=== PATIENT | male | born 1940 | race African-American/Black ===

== ENCOUNTER 2017-05-15 22:25 | Inpatient (IN) | payer MEDICARE, MEDICAID ==
[~2017-05-15] VITALS: Ht 188 cm; Wt 78.5 kg
[~2017-05-15 22:25] MED LIST: ALBU18HF2 IH; ALBUTEROL; AMLO10TA80 PO; IPRA42SP2 BOTHNSTRLS; LISI-604 PO; P20 PO; THEO200T17 PO
[2017-05-15] MEDS ORDERED: ALBUTEROL (0.083%) 2.5MG/3ML NEB HHN STA (23:28)
[2017-05-15] MEDS ORDERED: IPRATROPIUM BROMIDE (0.02%) 0.5MG/2.5ML NEB HHN STA (23:28)
[2017-05-15] MEDS ORDERED: METHYLPREDNISOLONE SOD SUCC 125 MG/2 ML VIAL IV STA (23:28)
[2017-05-15 23:47] LABS: BASOPHILS % 0.2 % (0.0-2.0); EOSINOPHILS % 0.1 % (0.0-5.0); HEMATOCRIT. 38.5 % (42.0-52.0); HEMOGLOBIN. 12.8 g/dL (14.0-18.0); MEAN CORPUSCULAR HEMOGLOBIN 25.9 pg (28.0-32.0); MEAN CORPUSCULAR VOLUME 77.6 fL (80.0-94.0); MEAN PLATELET VOLUME 8.1 fl (7.4-10.4); MONOCYTES % 9.2 % (2.0-8.0); NEUTROPHILS % 80.5 % (40.0-76.0); PLATELET 157 x1000/uL (130-400); RED BLOOD CELL COUNT 4.96 mill/uL (4.7-6.1); RED CELL DISTRIBUTION WIDTH 16.3 % (11.6-14.6)
[2017-05-16 00:04] LABS: CARBON DIOXIDE 29 mEq/L (21-32); CHLORIDE 107 mEq/L (98-107); TROPONIN I < 0.02 ng/mL (0.00-0.04)
[2017-05-16 00:09] LABS: BG BASE EXCESS 0.7 mmol/L (-2.0-2.0); BG CARBOXYHEMOGLOBIN 0.8 % (0.5-1.5); BG DEOXYHEMOGLOBIN 4.7 % (0.0-5.0); BG FRACTION INSPIRED OXYGEN 28; BG HCO3 ACT 26.3 mmol/L (22.0-26.0); BG METHEMOGLOBIN 0.2 % (0.0-1.5); BG OXYGEN SATURATION 95.3 % (92.0-98.5); BG OXYHEMOGLOBIN 94.3 % (94.0-97.0); BG PCO2 45.7 mmHg (35.0-45.0); BG PH 7.378 (7.350-7.450); BG PO2 79.5 mmHg (75.0-100.0); BG SAMPLE SITE RIGHT RADIAL; BG TOTAL HEMOGLOBIN 13.8 g/dL (12.0-18.0); BG VENT MODE NASAL CANNULA
[2017-05-16] MEDS ORDERED: GABA-290 PO ×2 (04:52→04:53)
[2017-05-16 06:00] VITALS: BP 113/70
[2017-05-16] MEDS ORDERED: IPRATROPIUM BROMIDE BOTHNSTRLS PRN (06:00)
[2017-05-16] MEDS ORDERED: ALBUTEROL 6.7GM HFA INHALER ORI PRN (06:00)
[2017-05-16] MEDS ORDERED: DICLOFENAC BOTHEYE (06:10)
[2017-05-16] MEDS ORDERED: ACETAMINOPHEN 325MG TABLET PO PRN (06:15)
[2017-05-16] MEDS ORDERED: IPRATROPIUM/ALBUTEROL 0.5-3(2.5)MG/3ML NEB HHN PRN (06:15)
[2017-05-16 06:18] VITALS: BP 119/70
[2017-05-16] MEDS: METHYLPREDNISOLONE SOD SUCC 40 MG/ML VIAL IV SCH ×3 (06:54→22:08)
[2017-05-16] MEDS ORDERED: CYCL30DR OP (07:31)
[2017-05-16 07:47] VITALS: BP 135/86
[2017-05-16] MEDS ORDERED: MEDICATION NOT ON FORMULARY EA (Gabapentin 600 MG) PO SCH (09:00)
[2017-05-16] MEDS: LISINOPRIL 20MG TABLET PO SCH (09:25)
[2017-05-16] MEDS: AMLODIPINE 10MG TABLET PO SCH (09:25)
[2017-05-16] MEDS: GABAPENTIN 300MG CAPSULE PO SCH ×2 (09:25→17:44)
[2017-05-16] MEDS: IPRATROPIUM/ALBUTEROL 0.5-3(2.5)MG/3ML NEB HHN SCH ×4 (11:07→22:15)
[2017-05-16 12:00] VITALS: BP 116/71
[2017-05-16 16:00] VITALS: BP 131/72
[2017-05-16] MEDS: DICLOFENAC 0.1% EACHEYE SCH (17:44)
[2017-05-16] MEDS: CYCLOSPORINE EACHEYE SCH (17:44)
[2017-05-16] MEDS: OPTH EACHEYE SCH (17:44)
[2017-05-16] MEDS: THEOPHYLLINE ANHYDROUS 80 MG/15 ML 120ML PO SCH (17:52)
[2017-05-16 20:00] VITALS: BP 127/71
[2017-05-17] VITALS: BP 117/75
[2017-05-17] MEDS: IPRATROPIUM/ALBUTEROL 0.5-3(2.5)MG/3ML NEB HHN SCH ×13 (00:12→19:55)
[2017-05-17] MEDS: THEOPHYLLINE ANHYDROUS 80 MG/15 ML 120ML PO SCH ×4 (00:30→18:45)
[2017-05-17 04:00] VITALS: BP 107/65
[2017-05-17] MEDS: METHYLPREDNISOLONE SOD SUCC 40 MG/ML VIAL IV SCH ×3 (06:00→21:01)
[2017-05-17 08:00] VITALS: BP 112/72
[2017-05-17] MEDS: GABAPENTIN 300MG CAPSULE PO SCH ×2 (09:13→17:49)
[2017-05-17] MEDS: DICLOFENAC 0.1% EACHEYE SCH ×2 (09:14→17:49)
[2017-05-17] MEDS: AMLODIPINE 10MG TABLET PO SCH (09:14)
[2017-05-17] MEDS: LISINOPRIL 20MG TABLET PO SCH (09:14)
[2017-05-17] MEDS: OPTH EACHEYE SCH ×2 (09:14→17:49)
[2017-05-17] MEDS: CYCLOSPORINE EACHEYE SCH ×2 (09:14→17:49)
[2017-05-17] MEDS ORDERED: IPRATROPIUM/ALBUTEROL 0.5-3(2.5)MG/3ML NEB HHN PRN (11:00)
[2017-05-17 11:55] LABS: HEMATOCRIT. 39.7 % (42.0-52.0); HEMOGLOBIN. 13.2 g/dL (14.0-18.0); MEAN CORPUSCULAR HEMOGLOBIN 25.9 pg (28.0-32.0); MEAN CORPUSCULAR VOLUME 77.9 fL (80.0-94.0); MEAN PLATELET VOLUME 8.2 fl (7.4-10.4); PLATELET 184 x1000/uL (130-400); RED BLOOD CELL COUNT 5.09 mill/uL (4.7-6.1); RED CELL DISTRIBUTION WIDTH 16.6 % (11.6-14.6)
[2017-05-17 12:00] VITALS: BP 100/63
[2017-05-17 12:11] LABS: CARBON DIOXIDE 32 mEq/L (21-32); CHLORIDE 102 mEq/L (98-107); PHOSPHORUS 2.7 mg/dL (2.5-4.9); THEOPHYLLINE 6.7 ug/mL (10-20); TROPONIN I < 0.02 ng/mL (0.00-0.04)
[2017-05-17] MEDS: GUAIFENESIN 600MG ER TABLET PO SCH ×2 (12:48→20:20)
[2017-05-17 16:00] VITALS: BP 109/54
[2017-05-17 16:19] LABS: PLATELET ESTIMATE NORMAL
[2017-05-17] MEDS ORDERED: GUAIFENESIN 600MG ER TABLET PO SCH (17:00)
[2017-05-17 20:00] VITALS: BP 102/66
[2017-05-18] VITALS: BP 108/66
[2017-05-18] MEDS: IPRATROPIUM/ALBUTEROL 0.5-3(2.5)MG/3ML NEB HHN SCH ×6 (00:23→21:14)
[2017-05-18] MEDS: THEOPHYLLINE ANHYDROUS 80 MG/15 ML 120ML PO SCH ×5 (00:27→23:56)
[2017-05-18] MEDS: DOCUSATE SODIUM 250MG CAPSULE PO SCH ×2 (00:45→08:32)
[2017-05-18] MEDS: CEFTRIAXONE 1 G PREMIX 50 ML IV SCH (01:40)
[2017-05-18 04:00] VITALS: BP 112/72
[2017-05-18] MEDS: METHYLPREDNISOLONE SOD SUCC 40 MG/ML VIAL IV SCH ×3 (05:12→22:03)
[2017-05-18 07:41] VITALS: BP 107/73
[2017-05-18] MEDS: OPTH EACHEYE SCH ×2 (08:30→17:06)
[2017-05-18] MEDS: DICLOFENAC 0.1% EACHEYE SCH ×2 (08:30→17:06)
[2017-05-18] MEDS: CYCLOSPORINE EACHEYE SCH ×2 (08:30→17:06)
[2017-05-18] MEDS: GABAPENTIN 300MG CAPSULE PO SCH ×2 (08:32→18:18)
[2017-05-18] MEDS: GUAIFENESIN 600MG ER TABLET PO SCH ×2 (08:32→22:01)
[2017-05-18] MEDS: AMLODIPINE 10MG TABLET PO SCH (08:33)
[2017-05-18] MEDS: LISINOPRIL 20MG TABLET PO SCH (08:33)
[2017-05-18] MEDS: ENOXAPARIN 40MG/0.4ML SYR SUBCUT SCH (08:34)
[2017-05-18 12:00] VITALS: BP 120/73
[2017-05-18 16:01] VITALS: BP 105/76
[2017-05-18 20:08] VITALS: BP 130/80
[2017-05-19 00:03] VITALS: BP 121/80
[2017-05-19] MEDS: IPRATROPIUM/ALBUTEROL 0.5-3(2.5)MG/3ML NEB HHN SCH ×6 (00:41→20:12)
[2017-05-19] MEDS: CEFTRIAXONE 1 G PREMIX 50 ML IV SCH (01:54)
[2017-05-19 04:00] VITALS: BP 123/80
[2017-05-19] MEDS: THEOPHYLLINE ANHYDROUS 80 MG/15 ML 120ML PO SCH ×3 (05:27→17:14)
[2017-05-19] MEDS: METHYLPREDNISOLONE SOD SUCC 40 MG/ML VIAL IV SCH ×3 (05:27→21:55)
[2017-05-19 06:59] LABS: BASOPHILS % 0.1 % (0.0-2.0); HEMATOCRIT. 43.7 % (42.0-52.0); HEMOGLOBIN. 14.3 g/dL (14.0-18.0); LYMPHOCYTES % 9.6 % (20.0-50.0); MEAN CORPUSCULAR HEMOGLOBIN 25.7 pg (28.0-32.0); MEAN CORPUSCULAR VOLUME 78.4 fL (80.0-94.0); MONOCYTES % 9.1 % (2.0-8.0); NEUTROPHILS % 81.2 % (40.0-76.0); PLATELET 204 x1000/uL (130-400); RED BLOOD CELL COUNT 5.57 mill/uL (4.7-6.1); RED CELL DISTRIBUTION WIDTH 16.3 % (11.6-14.6)
[2017-05-19 08:00] VITALS: BP 135/81
[2017-05-19] MEDS: DICLOFENAC 0.1% EACHEYE SCH ×2 (09:00→17:00)
[2017-05-19] MEDS: CYCLOSPORINE EACHEYE SCH ×2 (09:00→17:00)
[2017-05-19] MEDS: OPTH EACHEYE SCH ×2 (09:00→17:00)
[2017-05-19 09:07] LABS: CARBON DIOXIDE 31 mEq/L (21-32); CHLORIDE 98 mEq/L (98-107); THEOPHYLLINE 12.2 ug/mL (10-20)
[2017-05-19] MEDS: DOCUSATE SODIUM 250MG CAPSULE PO SCH (10:07)
[2017-05-19] MEDS: LISINOPRIL 20MG TABLET PO SCH (10:08)
[2017-05-19] MEDS: GABAPENTIN 300MG CAPSULE PO SCH ×2 (10:08→17:14)
[2017-05-19] MEDS: GUAIFENESIN 600MG ER TABLET PO SCH ×2 (10:08→21:55)
[2017-05-19] MEDS: AMLODIPINE 10MG TABLET PO SCH (10:08)
[2017-05-19] MEDS: ENOXAPARIN 40MG/0.4ML SYR SUBCUT SCH (10:09)
[2017-05-19 17:00] VITALS: BP 114/66
[2017-05-19 20:00] VITALS: BP 110/67
[2017-05-20] VITALS: BP 115/63
[2017-05-20] MEDS: IPRATROPIUM/ALBUTEROL 0.5-3(2.5)MG/3ML NEB HHN SCH ×7 (00:33→20:49)
[2017-05-20] MEDS: CEFTRIAXONE 1 G PREMIX 50 ML IV SCH (01:24)
[2017-05-20 04:00] VITALS: BP 108/74
[2017-05-20 06:50] LABS: BASOPHILS % 0.1 % (0.0-2.0); HEMATOCRIT. 43.5 % (42.0-52.0); HEMOGLOBIN. 14.4 g/dL (14.0-18.0); LYMPHOCYTES % 8.9 % (20.0-50.0); MEAN CORPUSCULAR HEMOGLOBIN 25.9 pg (28.0-32.0); MEAN CORPUSCULAR VOLUME 78.3 fL (80.0-94.0); MEAN PLATELET VOLUME 8.1 fl (7.4-10.4); MONOCYTES % 9.6 % (2.0-8.0); NEUTROPHILS % 81.4 % (40.0-76.0); PLATELET 218 x1000/uL (130-400); RED BLOOD CELL COUNT 5.55 mill/uL (4.7-6.1); RED CELL DISTRIBUTION WIDTH 16.2 % (11.6-14.6)
[2017-05-20] MEDS: THEOPHYLLINE ANHYDROUS 80 MG/15 ML 120ML PO SCH ×5 (06:54→23:56)
[2017-05-20] MEDS: METHYLPREDNISOLONE SOD SUCC 40 MG/ML VIAL IV SCH ×3 (06:54→22:57)
[2017-05-20 08:00] VITALS: BP 110/70
[2017-05-20 08:04] LABS: CARBON DIOXIDE 32 mEq/L (21-32); CHLORIDE 98 mEq/L (98-107)
[2017-05-20] MEDS: AMLODIPINE 10MG TABLET PO SCH (08:46)
[2017-05-20] MEDS: DOCUSATE SODIUM 250MG CAPSULE PO SCH (08:46)
[2017-05-20] MEDS: ENOXAPARIN 40MG/0.4ML SYR SUBCUT SCH (08:46)
[2017-05-20] MEDS: LISINOPRIL 20MG TABLET PO SCH (08:46)
[2017-05-20] MEDS: GABAPENTIN 300MG CAPSULE PO SCH ×2 (08:46→17:08)
[2017-05-20] MEDS: GUAIFENESIN 600MG ER TABLET PO SCH ×2 (08:46→20:23)
[2017-05-20] MEDS: DICLOFENAC 0.1% EACHEYE SCH ×2 (08:48→17:00)
[2017-05-20] MEDS: CYCLOSPORINE EACHEYE SCH ×2 (08:48→17:00)
[2017-05-20] MEDS: OPTH EACHEYE SCH ×2 (08:48→17:00)
[2017-05-20 12:16] VITALS: BP 99/69
[2017-05-20 16:00] VITALS: BP 115/66
[2017-05-20 20:00] VITALS: BP 109/73
[2017-05-21] VITALS: BP 105/71
[2017-05-21] MEDS: IPRATROPIUM/ALBUTEROL 0.5-3(2.5)MG/3ML NEB HHN SCH ×6 (00:51→19:45)
[2017-05-21] MEDS: CEFTRIAXONE 1 G PREMIX 50 ML IV SCH (01:54)
[2017-05-21 04:00] VITALS: BP 114/74
[2017-05-21] MEDS: THEOPHYLLINE ANHYDROUS 80 MG/15 ML 120ML PO SCH ×3 (06:07→20:24)
[2017-05-21] MEDS: METHYLPREDNISOLONE SOD SUCC 40 MG/ML VIAL IV SCH ×2 (06:22→13:18)
[2017-05-21 07:49] VITALS: BP 111/72
[2017-05-21] MEDS: DICLOFENAC 0.1% EACHEYE SCH ×2 (09:00→17:00)
[2017-05-21] MEDS: AMLODIPINE 10MG TABLET PO SCH (09:00)
[2017-05-21] MEDS: OPTH EACHEYE SCH ×2 (09:00→17:00)
[2017-05-21] MEDS: CYCLOSPORINE EACHEYE SCH ×2 (09:00→17:00)
[2017-05-21] MEDS: GABAPENTIN 300MG CAPSULE PO SCH ×2 (09:40→17:21)
[2017-05-21] MEDS: DOCUSATE SODIUM 250MG CAPSULE PO SCH (09:40)
[2017-05-21] MEDS: LISINOPRIL 20MG TABLET PO SCH (09:40)
[2017-05-21] MEDS: GUAIFENESIN 600MG ER TABLET PO SCH ×2 (09:41→20:24)
[2017-05-21] MEDS: ENOXAPARIN 40MG/0.4ML SYR SUBCUT SCH (09:42)
[2017-05-21 11:55] VITALS: BP 103/60
[2017-05-21 16:10] VITALS: BP 93/57
[2017-05-21 20:00] VITALS: BP 119/56
[2017-05-22] VITALS: BP 106/61
[2017-05-22] MEDS: CEFTRIAXONE 1 G PREMIX 50 ML IV SCH (01:06)
[2017-05-22 04:00] VITALS: BP 104/69
[2017-05-22] MEDS: IPRATROPIUM/ALBUTEROL 0.5-3(2.5)MG/3ML NEB HHN SCH ×6 (04:05→20:37)
[2017-05-22] MEDS ORDERED: METHYLPREDNISOLONE SOD SUCC 40 MG/ML VIAL IV SCH (06:15)
[2017-05-22 07:43] VITALS: BP 125/60
[2017-05-22] MEDS: DOCUSATE SODIUM 250MG CAPSULE PO SCH (08:59)
[2017-05-22] MEDS: GABAPENTIN 300MG CAPSULE PO SCH ×2 (08:59→16:19)
[2017-05-22] MEDS: AMLODIPINE 10MG TABLET PO SCH (08:59)
[2017-05-22] MEDS: GUAIFENESIN 600MG ER TABLET PO SCH ×2 (08:59→21:30)
[2017-05-22] MEDS: OPTH EACHEYE SCH ×2 (09:00→16:14)
[2017-05-22] MEDS: DICLOFENAC 0.1% EACHEYE SCH ×2 (09:00→16:14)
[2017-05-22] MEDS: CYCLOSPORINE EACHEYE SCH ×2 (09:00→16:14)
[2017-05-22] MEDS: LISINOPRIL 20MG TABLET PO SCH (09:00)
[2017-05-22] MEDS: ENOXAPARIN 40MG/0.4ML SYR SUBCUT SCH (09:01)
[2017-05-22 12:00] VITALS: BP 95/60
[2017-05-22 16:00] VITALS: BP 100/61
[2017-05-22 20:17] VITALS: BP 97/64
[2017-05-22] MEDS: THEOPHYLLINE ANHYDROUS 80 MG/15 ML 120ML PO SCH (21:30)
[2017-05-23] VITALS (12 sets, daily range): BP systolic 72–112; BP diastolic 43–78
[2017-05-23] MEDS: IPRATROPIUM/ALBUTEROL 0.5-3(2.5)MG/3ML NEB HHN SCH ×5 (00:04→17:28)
[2017-05-23] MEDS: CEFTRIAXONE 1 G PREMIX 50 ML IV SCH (02:07)
[2017-05-23 07:19] LABS: BASOPHILS % 0.1 % (0.0-2.0); HEMATOCRIT. 43.4 % (42.0-52.0); HEMOGLOBIN. 14.5 g/dL (14.0-18.0); LYMPHOCYTES % 29.1 % (20.0-50.0); MEAN CORPUSCULAR HEMOGLOBIN 26.2 pg (28.0-32.0); MEAN CORPUSCULAR VOLUME 78.6 fL (80.0-94.0); MEAN PLATELET VOLUME 7.9 fl (7.4-10.4); MONOCYTES % 10.9 % (2.0-8.0); NEUTROPHILS % 58.9 % (40.0-76.0); PLATELET 229 x1000/uL (130-400); RED BLOOD CELL COUNT 5.52 mill/uL (4.7-6.1); RED CELL DISTRIBUTION WIDTH 16.1 % (11.6-14.6)
[2017-05-23 08:21] LABS: CARBON DIOXIDE 32 mEq/L (21-32); CHLORIDE 98 mEq/L (98-107)
[2017-05-23] MEDS: CYCLOSPORINE EACHEYE SCH ×2 (09:00→17:00)
[2017-05-23] MEDS: AMLODIPINE 10MG TABLET PO SCH (09:00)
[2017-05-23] MEDS: DOCUSATE SODIUM 250MG CAPSULE PO SCH (09:00)
[2017-05-23] MEDS: GUAIFENESIN 600MG ER TABLET PO SCH ×2 (09:01→21:52)
[2017-05-23] MEDS: GABAPENTIN 300MG CAPSULE PO SCH ×2 (09:01→17:26)
[2017-05-23] MEDS: OPTH EACHEYE SCH ×2 (09:02→17:26)
[2017-05-23] MEDS: LISINOPRIL 20MG TABLET PO SCH (09:02)
[2017-05-23] MEDS: DICLOFENAC 0.1% EACHEYE SCH ×2 (09:02→17:26)
[2017-05-23] MEDS: ENOXAPARIN 40MG/0.4ML SYR SUBCUT SCH (09:04)
[2017-05-23] MEDS ORDERED: SODIUM CHLORIDE 0.9% 500 ML IV NR (16:15)
[2017-05-23] MEDS ORDERED: SODIUM CHLORIDE 0.9% 500 ML IV SCH (17:00)
[2017-05-23] MEDS ORDERED: SODIUM CHLORIDE 0.9% 500 ML IV ONE (19:45)
[2017-05-23] MEDS: OMEPRAZOLE 20MG CAPSULE EXTENDED RELEASE PO SCH (21:52)
[2017-05-23] MEDS: THEOPHYLLINE ANHYDROUS 80 MG/15 ML 120ML PO SCH (21:53)
[2017-05-24] MEDS: IPRATROPIUM/ALBUTEROL 0.5-3(2.5)MG/3ML NEB HHN SCH ×6 (00:18→19:53)
[2017-05-24] MEDS: CEFTRIAXONE 1 G PREMIX 50 ML IV SCH (01:22)
[2017-05-24 04:00] VITALS: BP 100/59
[2017-05-24] MEDS: OMEPRAZOLE 20MG CAPSULE EXTENDED RELEASE PO SCH (06:37)
[2017-05-24 07:45] LABS: CLARITY URINE CLEAR (CLEAR); COLOR URINE YELLOW (YELLOW); GLUCOSE URINE NEGATIVE (NEGATIVE); KETONES URINE NEGATIVE (NEGATIVE); LEUKOCYTE ESTERASE URINE NEGATIVE (NEGATIVE); NITRITE URINE NEGATIVE (NEGATIVE); OCCULT BLOOD URINE NEGATIVE (NEGATIVE); PH URINE 6.5 (4.5-8.0); PROTEIN URINE NEGATIVE (NEGATIVE); SPECIFIC GRAVITY URINE 1.012 (1.005-1.030); UROBILINOGEN URINE 0.2 E.U./dL (0.2-1.0)
[2017-05-24 07:52] LABS: BASOPHILS % 0.3 % (0.0-2.0); EOSINOPHILS % 1.3 % (0.0-5.0); HEMATOCRIT. 43.4 % (42.0-52.0); HEMOGLOBIN. 14.3 g/dL (14.0-18.0); MEAN CORPUSCULAR HEMOGLOBIN 25.9 pg (28.0-32.0); MEAN CORPUSCULAR VOLUME 78.6 fL (80.0-94.0); MEAN PLATELET VOLUME 7.8 fl (7.4-10.4); MONOCYTES % 12.8 % (2.0-8.0); NEUTROPHILS % 59.6 % (40.0-76.0); PLATELET 202 x1000/uL (130-400); RED BLOOD CELL COUNT 5.52 mill/uL (4.7-6.1); RED CELL DISTRIBUTION WIDTH 16.4 % (11.6-14.6)
[2017-05-24 08:00] VITALS: BP 91/64
[2017-05-24 08:25] LABS: CARBON DIOXIDE 35 mEq/L (21-32); CHLORIDE 100 mEq/L (98-107)
[2017-05-24] MEDS: OPTH EACHEYE SCH ×2 (08:48→16:13)
[2017-05-24] MEDS: DICLOFENAC 0.1% EACHEYE SCH ×2 (08:48→16:13)
[2017-05-24] MEDS: LISINOPRIL 20MG TABLET PO SCH (08:49)
[2017-05-24] MEDS: CYCLOSPORINE EACHEYE SCH ×2 (08:49→16:13)
[2017-05-24] MEDS: AMLODIPINE 10MG TABLET PO SCH (08:49)
[2017-05-24] MEDS: ENOXAPARIN 40MG/0.4ML SYR SUBCUT SCH (08:50)
[2017-05-24] MEDS: DOCUSATE SODIUM 250MG CAPSULE PO SCH (08:51)
[2017-05-24] MEDS: GABAPENTIN 300MG CAPSULE PO SCH ×2 (08:51→16:16)
[2017-05-24] MEDS: GUAIFENESIN 600MG ER TABLET PO SCH ×2 (08:51→20:29)
[2017-05-24] MEDS: DEXT 5%/0.9% NACL 1,000 ML IV SCH ×2 (10:16→18:55)
[2017-05-24 12:00] VITALS: BP 94/60
[2017-05-24 16:00] VITALS: BP 92/55
[2017-05-24 19:35] VITALS: BP 89/59
[2017-05-24] MEDS: THEOPHYLLINE ANHYDROUS 80 MG/15 ML 120ML PO SCH (20:29)
[2017-05-25 00:23] VITALS: BP 106/68
[2017-05-25] MEDS: IPRATROPIUM/ALBUTEROL 0.5-3(2.5)MG/3ML NEB HHN SCH ×6 (01:03→19:57)
[2017-05-25] MEDS: CEFTRIAXONE 1 G PREMIX 50 ML IV SCH (01:32)
[2017-05-25 04:46] VITALS: BP 105/72
[2017-05-25] MEDS: OMEPRAZOLE 20MG CAPSULE EXTENDED RELEASE PO SCH (06:14)
[2017-05-25 08:00] VITALS: BP 110/69
[2017-05-25] MEDS: AMLODIPINE 10MG TABLET PO SCH (09:00)
[2017-05-25] MEDS: CYCLOSPORINE EACHEYE SCH ×2 (09:00→17:00)
[2017-05-25] MEDS: LISINOPRIL 20MG TABLET PO SCH (09:00)
[2017-05-25] MEDS: GUAIFENESIN 600MG ER TABLET PO SCH ×2 (09:03→20:36)
[2017-05-25] MEDS: DOCUSATE SODIUM 250MG CAPSULE PO SCH (09:03)
[2017-05-25] MEDS: GABAPENTIN 300MG CAPSULE PO SCH ×2 (09:03→17:25)
[2017-05-25] MEDS: ENOXAPARIN 40MG/0.4ML SYR SUBCUT SCH (09:03)
[2017-05-25] MEDS: DICLOFENAC 0.1% EACHEYE SCH ×2 (09:04→17:25)
[2017-05-25] MEDS: OPTH EACHEYE SCH ×2 (09:04→17:25)
[2017-05-25 12:00] VITALS: BP 107/63
[2017-05-25 16:00] VITALS: BP 103/58
[2017-05-25 20:00] VITALS: BP 96/64
[2017-05-25] MEDS: THEOPHYLLINE ANHYDROUS 80 MG/15 ML 120ML PO SCH (20:37)
[2017-05-26] VITALS: BP 105/70
[2017-05-26] MEDS: IPRATROPIUM/ALBUTEROL 0.5-3(2.5)MG/3ML NEB HHN SCH ×4 (00:10→12:00)
[2017-05-26 04:00] VITALS: BP 114/66
[2017-05-26 06:11] LABS: CARBON DIOXIDE 33 mEq/L (21-32); CHLORIDE 97 mEq/L (98-107); THEOPHYLLINE 4.9 ug/mL (10-20)
[2017-05-26 06:15] LABS: BASOPHILS % 0.2 % (0.0-2.0); EOSINOPHILS % 0.7 % (0.0-5.0); HEMATOCRIT. 41.6 % (42.0-52.0); HEMOGLOBIN. 13.8 g/dL (14.0-18.0); LYMPHOCYTES % 24.7 % (20.0-50.0); MEAN CORPUSCULAR VOLUME 78.8 fL (80.0-94.0); MONOCYTES % 12.1 % (2.0-8.0); NEUTROPHILS % 62.3 % (40.0-76.0); PLATELET 190 x1000/uL (130-400); RED BLOOD CELL COUNT 5.28 mill/uL (4.7-6.1); RED CELL DISTRIBUTION WIDTH 15.9 % (11.6-14.6)
[2017-05-26] MEDS: OMEPRAZOLE 20MG CAPSULE EXTENDED RELEASE PO SCH (06:16)
[2017-05-26 07:51] VITALS: BP 111/71
[2017-05-26] MEDS: ENOXAPARIN 40MG/0.4ML SYR SUBCUT SCH (08:48)
[2017-05-26] MEDS: DICLOFENAC 0.1% EACHEYE SCH (08:48)
[2017-05-26] MEDS: OPTH EACHEYE SCH (08:48)
[2017-05-26] MEDS: GABAPENTIN 300MG CAPSULE PO SCH (08:48)
[2017-05-26] MEDS: DOCUSATE SODIUM 250MG CAPSULE PO SCH (08:48)
[2017-05-26] MEDS: CYCLOSPORINE EACHEYE SCH (08:49)
[2017-05-26] MEDS: GUAIFENESIN 600MG ER TABLET PO SCH (08:49)
[2017-05-26 10:53] VITALS: BP 111/71
== END 2017-05-26 14:50 | disposition home or self-care (01) | DRG 189 ==
LOC: ER 22:25 → 8WST 05-16 → EDBEDREQTM 05-16 00:07 → EDBEDREQ 05-16 00:07 → CANRESERV 05-16 01:22 → ENRESERVDT 05-16 01:22 → ENRESERVTM 05-16 01:22 → ENRESERV 05-16 04:09
PROVIDERS: ADMIT Internal Medicine; ATTEND Internal Medicine
DX: J96.20 Acute and chronic respiratory failure, unspecified whether with hypoxia or hypercapnia (principal); J18.9 Pneumonia, unspecified organism; I47.2 Ventricular tachycardia; I95.9 Hypotension, unspecified; D72.829 Elevated white blood cell count, unspecified; J44.0 Chronic obstructive pulmonary disease with (acute) lower respiratory infection; J44.1 Chronic obstructive pulmonary disease with (acute) exacerbation; I10 Essential (primary) hypertension; R26.9 Unspecified abnormalities of gait and mobility; R61 Generalized hyperhidrosis; Z82.49 Family history of ischemic heart disease and other diseases of the circulatory system; Z79.899 Other long term (current) drug therapy; Z88.8 Allergy status to other drugs, medicaments and biological substances; Z87.891 Personal history of nicotine dependence; J20.8 Acute bronchitis due to other specified organisms
CPT/HCPCS: 36415; 36600; 71010; 71020; 80048; 80198; 81003; 82375; 82805; 83605; 83735; 84100; 84132; 84484; 85025; 85651; 87040; 87070; 93005; 93306; 94640; 94644; 96374; 97110; 97116; 97162; 97166; 97530; 99285; J0696; J1650; J2920; J2930; J7040; J7042; J7050; J7611; J7620

== ENCOUNTER 2017-12-14 10:22 | Inpatient (IN) | payer MEDICARE, MEDICAID ==
[~2017-12-14] VITALS: Ht 180.3 cm; Wt 78.9 kg
[~2017-12-14 10:22] MED LIST changes: -ALBU18HF2 IH; +CYCL30DR OP; +DICLOFENAC BOTHEYE; +GABA-290 PO; -IPRA42SP2 BOTHNSTRLS
[2017-12-14 11:11] LABS: BASOPHILS % 0.1 % (0.0-2.0); EOSINOPHILS % 0.3 % (0.0-5.0); HEMATOCRIT. 37.8 % (42.0-52.0); HEMOGLOBIN. 12.4 g/dL (14.0-18.0); LYMPHOCYTES % 23.8 % (20.0-50.0); MEAN CORPUSCULAR HEMOGLOBIN 27.5 pg (28.0-32.0); MEAN CORPUSCULAR VOLUME 83.5 fL (80.0-94.0); MEAN PLATELET VOLUME 7.6 fl (7.4-10.4); MONOCYTES % 10.2 % (2.0-8.0); NEUTROPHILS % 65.6 % (40.0-76.0); PLATELET 165 x1000/uL (130-400); RED BLOOD CELL COUNT 4.52 mill/uL (4.7-6.1); RED CELL DISTRIBUTION WIDTH 15.1 % (11.6-14.6)
[2017-12-14 11:18] LABS: CHLORIDE 102 mEq/L (98-107); PROTHROMBIN TIME 10.7 sec (9.4-11.6)
[2017-12-14] MEDS ORDERED: METHYLPREDNISOLONE SOD SUCC 125 MG/2 ML VIAL IV STA (11:45)
[2017-12-14] MEDS ORDERED: ALBUTEROL (0.083%) 2.5MG/3ML NEB HHN STA (11:45)
[2017-12-14] MEDS ORDERED: ACETAMINOPHEN 325MG TABLET PO PRN (13:00)
[2017-12-14] MEDS ORDERED: HYDROCODONE/ACETAMINOPHEN 5/325MG TABLET PO PRN (13:00)
[2017-12-14] MEDS ORDERED: GUAIFENESIN 200MG/10ML SUGAR FREE UDC PO PRN (13:00)
[2017-12-14] MEDS ORDERED: CLONIDINE 0.1MG TABLET PO PRN (13:00)
[2017-12-14] MEDS ORDERED: ONDANSETRON HCL 4MG/2ML VIAL IV PRN (13:00)
[2017-12-14 15:53] LABS: CREATINE KINASE 47 IU/L (39-308); CREATINE KINASE MB FRACTION 1.9 ng/mL (0.5-3.6)
[2017-12-14] MEDS: IPRATROPIUM/ALBUTEROL 0.5-3(2.5)MG/3ML NEB INH PRN ×2 (16:09→22:52)
[2017-12-14 21:00] VITALS: BP 156/86
[2017-12-14 21:22] VITALS: BP 156/86
[2017-12-14] MEDS ORDERED: CEFTRIAXONE 1 G PREMIX 50 ML IV SCH (22:00)
[2017-12-14] MEDS ORDERED: AZITHROMYCIN 500 MG in DEXT 5% WATER 250 ML IV SCH (23:00)
[2017-12-15] VITALS: BP 141/70
[2017-12-15 00:06] LABS: CREATINE KINASE 47 IU/L (39-308)
[2017-12-15 00:07] LABS: CREATINE KINASE MB FRACTION 2.3 ng/mL (0.5-3.6)
[2017-12-15 04:00] VITALS: BP 121/81
[2017-12-15] MEDS: IPRATROPIUM/ALBUTEROL 0.5-3(2.5)MG/3ML NEB INH PRN (05:53)
[2017-12-15] MEDS: PANTOPRAZOLE 40MG DR TABLET PO SCH (05:53)
[2017-12-15 06:59] LABS: BASOPHILS % 0.1 % (0.0-2.0); HEMATOCRIT. 40.2 % (42.0-52.0); HEMOGLOBIN. 12.9 g/dL (14.0-18.0); LYMPHOCYTES % 7.8 % (20.0-50.0); MEAN CORPUSCULAR HEMOGLOBIN 26.8 pg (28.0-32.0); MEAN CORPUSCULAR VOLUME 83.4 fL (80.0-94.0); MEAN PLATELET VOLUME 8.5 fl (7.4-10.4); MONOCYTES % 5.1 % (2.0-8.0); PLATELET 189 x1000/uL (130-400); RED BLOOD CELL COUNT 4.81 mill/uL (4.7-6.1)
[2017-12-15 07:42] LABS: CHLORIDE 100 mEq/L (98-107)
[2017-12-15 07:54] LABS: LDL CHOLESTEROL 108 mg/dL (5-100)
[2017-12-15 08:00] VITALS: BP 122/67
[2017-12-15 08:44] LABS: HDL CHOLESTEROL 137 mg/dL (40-59)
[2017-12-15] MEDS: TAMSULOSIN HCL 0.4MG SR CAPSULE PO SCH (08:54)
[2017-12-15] MEDS: AMLODIPINE 10MG TABLET PO SCH (08:54)
[2017-12-15] MEDS: ASPIRIN 81MG EC TABLET PO SCH (08:54)
[2017-12-15] MEDS: ENOXAPARIN 40MG/0.4ML SYR SUBCUT SCH (08:55)
[2017-12-15] MEDS: DOCUSATE SODIUM 100MG CAPSULE PO PRN (08:56)
[2017-12-15 10:16] LABS: BG BASE EXCESS 4.1 mmol/L (-2.0-2.0); BG CARBOXYHEMOGLOBIN 0.9 % (0.5-1.5); BG DEOXYHEMOGLOBIN 5.8 % (0.0-5.0); BG FRACTION INSPIRED OXYGEN 28; BG HCO3 ACT 31.1 mmol/L (22.0-26.0); BG METHEMOGLOBIN 0.3 % (0.0-1.5); BG OXYGEN SATURATION 94.1 % (92.0-98.5); BG PCO2 56.4 mmHg (35.0-45.0); BG PH 7.359 (7.350-7.450); BG PO2 76.9 mmHg (75.0-100.0); BG SAMPLE SITE RIGHT RADIAL; BG TOTAL HEMOGLOBIN 13.9 g/dL (12.0-18.0); BG VENT MODE NASAL CANNULA
[2017-12-15] MEDS ORDERED: IPRATROPIUM/ALBUTEROL 0.5-3(2.5)MG/3ML NEB INH PRN (11:30)
[2017-12-15 12:00] VITALS: BP 130/73
[2017-12-15] MEDS ORDERED: SODIUM POLYSTYRENE SULFONATE 15 G/60 ML BOT PO SCH (12:00)
[2017-12-15] MEDS ORDERED: IPRATROPIUM/ALBUTEROL 0.5-3(2.5)MG/3ML NEB HHN SCH (12:00)
[2017-12-15] MEDS ORDERED: BUDESONIDE 0.5MG/2ML NEB HHN SCH (12:15)
[2017-12-15] MEDS ORDERED: METHYLPREDNISOLONE SOD SUCC 40 MG/ML VIAL IV SCH (12:15)
[2017-12-15] MEDS: METHYLPREDNISOLONE SOD SUCC 40 MG/ML VIAL IV SCH ×2 (12:32→23:38)
[2017-12-15] MEDS: IPRATROPIUM/ALBUTEROL 0.5-3(2.5)MG/3ML NEB HHN SCH ×2 (15:41→21:02)
[2017-12-15 16:00] VITALS: BP 123/64
[2017-12-15 20:00] VITALS: BP 116/67
[2017-12-15] MEDS: CEFTRIAXONE 1 G PREMIX 50 ML IV SCH (23:39)
[2017-12-16] VITALS: BP 107/65
[2017-12-16] MEDS: AZITHROMYCIN 500 MG in DEXT 5% WATER 250 ML IV SCH (00:13)
[2017-12-16] MEDS: IPRATROPIUM/ALBUTEROL 0.5-3(2.5)MG/3ML NEB HHN SCH ×4 (01:20→20:31)
[2017-12-16 04:00] VITALS: BP 124/72
[2017-12-16] MEDS: PANTOPRAZOLE 40MG DR TABLET PO SCH (05:54)
[2017-12-16 07:27] LABS: HEMOGLOBIN. 12.6 g/dL (14.0-18.0); MEAN CORPUSCULAR HEMOGLOBIN 26.8 pg (28.0-32.0); MEAN CORPUSCULAR VOLUME 83.3 fL (80.0-94.0); MEAN PLATELET VOLUME 8.8 fl (7.4-10.4); PLATELET 172 x1000/uL (130-400); RED BLOOD CELL COUNT 4.69 mill/uL (4.7-6.1); RED CELL DISTRIBUTION WIDTH 14.8 % (11.6-14.6)
[2017-12-16 07:56] LABS: CHLORIDE 101 mEq/L (98-107)
[2017-12-16 08:37] VITALS: BP 121/96
[2017-12-16] MEDS: ENOXAPARIN 40MG/0.4ML SYR SUBCUT SCH (08:39)
[2017-12-16] MEDS: TAMSULOSIN HCL 0.4MG SR CAPSULE PO SCH (08:39)
[2017-12-16] MEDS: AMLODIPINE 10MG TABLET PO SCH (08:39)
[2017-12-16] MEDS: ASPIRIN 81MG EC TABLET PO SCH (08:39)
[2017-12-16] MEDS: METHYLPREDNISOLONE SOD SUCC 40 MG/ML VIAL IV SCH ×2 (11:53→20:15)
[2017-12-16 11:58] VITALS: BP 116/68
[2017-12-16] MEDS ORDERED: IPRATROPIUM/ALBUTEROL 0.5-3(2.5)MG/3ML NEB HHN PRN (19:45)
[2017-12-16 20:00] VITALS: BP 120/74
[2017-12-16] MEDS: CEFTRIAXONE 1 G PREMIX 50 ML IV SCH (23:09)
[2017-12-17] VITALS: BP 97/64
[2017-12-17] MEDS: METHYLPREDNISOLONE SOD SUCC 40 MG/ML VIAL IV SCH ×5 (00:09→22:58)
[2017-12-17] MEDS: AZITHROMYCIN 500 MG in DEXT 5% WATER 250 ML IV SCH (00:09)
[2017-12-17] MEDS: IPRATROPIUM/ALBUTEROL 0.5-3(2.5)MG/3ML NEB HHN SCH ×6 (00:47→20:47)
[2017-12-17 04:00] VITALS: BP 127/74
[2017-12-17 05:13] LABS: PLATELET ESTIMATE NORMAL
[2017-12-17] MEDS: PANTOPRAZOLE 40MG DR TABLET PO SCH (05:58)
[2017-12-17 07:14] LABS: HEMATOCRIT. 39.3 % (42.0-52.0); HEMOGLOBIN. 12.6 g/dL (14.0-18.0); MEAN CORPUSCULAR HEMOGLOBIN 26.7 pg (28.0-32.0); MEAN CORPUSCULAR VOLUME 83.2 fL (80.0-94.0); MEAN PLATELET VOLUME 8.4 fl (7.4-10.4); PLATELET 173 x1000/uL (130-400); RED BLOOD CELL COUNT 4.72 mill/uL (4.7-6.1); RED CELL DISTRIBUTION WIDTH 14.9 % (11.6-14.6)
[2017-12-17 08:00] LABS: CHLORIDE 101 mEq/L (98-107)
[2017-12-17 08:19] LABS: PHOSPHORUS 2.8 mg/dL (2.5-4.9)
[2017-12-17 08:27] VITALS: BP 119/70
[2017-12-17] MEDS: TAMSULOSIN HCL 0.4MG SR CAPSULE PO SCH (08:28)
[2017-12-17] MEDS: ASPIRIN 81MG EC TABLET PO SCH (08:28)
[2017-12-17] MEDS: AMLODIPINE 10MG TABLET PO SCH (08:28)
[2017-12-17] MEDS: ENOXAPARIN 40MG/0.4ML SYR SUBCUT SCH (08:28)
[2017-12-17] MEDS: DOCUSATE SODIUM 100MG CAPSULE PO PRN (08:34)
[2017-12-17 16:00] VITALS: BP 120/87
[2017-12-17 20:00] VITALS: BP 127/77
[2017-12-17] MEDS: CEFTRIAXONE 1 G PREMIX 50 ML IV SCH (22:58)
[2017-12-18] VITALS: BP 120/79
[2017-12-18] MEDS: IPRATROPIUM/ALBUTEROL 0.5-3(2.5)MG/3ML NEB HHN SCH ×5 (00:30→21:58)
[2017-12-18] MEDS: AZITHROMYCIN 500 MG in DEXT 5% WATER 250 ML IV SCH (00:35)
[2017-12-18 04:00] VITALS: BP 137/83
[2017-12-18] MEDS: METHYLPREDNISOLONE SOD SUCC 40 MG/ML VIAL IV SCH ×4 (05:50→23:55)
[2017-12-18] MEDS: PANTOPRAZOLE 40MG DR TABLET PO SCH (05:50)
[2017-12-18 08:00] VITALS: BP 131/78
[2017-12-18] MEDS: AMLODIPINE 10MG TABLET PO SCH (08:59)
[2017-12-18] MEDS: TAMSULOSIN HCL 0.4MG SR CAPSULE PO SCH (09:00)
[2017-12-18] MEDS: ASPIRIN 81MG EC TABLET PO SCH (09:00)
[2017-12-18] MEDS: ENOXAPARIN 40MG/0.4ML SYR SUBCUT SCH (09:00)
[2017-12-18] MEDS: DOCUSATE SODIUM 100MG CAPSULE PO PRN (10:00)
[2017-12-18 12:00] VITALS: BP 132/73
[2017-12-18 15:18] LABS: PLATELET ESTIMATE NORMAL
[2017-12-18 16:00] VITALS: BP 127/84
[2017-12-18 20:00] VITALS: BP 121/69
[2017-12-18] MEDS: ARFORMOTEROL TARTRATE 15MCG/2ML NEB NEB SCH (21:58)
[2017-12-18] MEDS: CEFTRIAXONE 1 G PREMIX 50 ML IV SCH (23:56)
[2017-12-19] VITALS: BP 154/72
[2017-12-19] MEDS: IPRATROPIUM/ALBUTEROL 0.5-3(2.5)MG/3ML NEB HHN SCH ×6 (00:50→20:25)
[2017-12-19] MEDS: AZITHROMYCIN 500 MG in DEXT 5% WATER 250 ML IV SCH ×2 (00:55→23:58)
[2017-12-19 04:00] VITALS: BP 128/59
[2017-12-19 05:45] LABS: HEMATOCRIT. 37.8 % (42.0-52.0); HEMOGLOBIN. 12.2 g/dL (14.0-18.0); MEAN CORPUSCULAR HEMOGLOBIN 26.7 pg (28.0-32.0); MEAN PLATELET VOLUME 8.5 fl (7.4-10.4); PLATELET 174 x1000/uL (130-400); RED BLOOD CELL COUNT 4.56 mill/uL (4.7-6.1); RED CELL DISTRIBUTION WIDTH 14.8 % (11.6-14.6)
[2017-12-19 06:41] LABS: CHLORIDE 103 mEq/L (98-107)
[2017-12-19 06:47] LABS: PHOSPHORUS 2.2 mg/dL (2.5-4.9)
[2017-12-19] MEDS: METHYLPREDNISOLONE SOD SUCC 40 MG/ML VIAL IV SCH ×4 (06:47→23:18)
[2017-12-19] MEDS: PANTOPRAZOLE 40MG DR TABLET PO SCH (06:47)
[2017-12-19 08:00] VITALS: BP 117/74
[2017-12-19] MEDS: ARFORMOTEROL TARTRATE 15MCG/2ML NEB NEB SCH ×2 (08:07→21:42)
[2017-12-19] MEDS: ASPIRIN 81MG EC TABLET PO SCH (09:18)
[2017-12-19] MEDS: AMLODIPINE 10MG TABLET PO SCH (09:18)
[2017-12-19] MEDS: TAMSULOSIN HCL 0.4MG SR CAPSULE PO SCH (09:18)
[2017-12-19] MEDS: ENOXAPARIN 40MG/0.4ML SYR SUBCUT SCH (09:25)
[2017-12-19] MEDS: DOCUSATE SODIUM 100MG CAPSULE PO PRN ×2 (09:25→21:34)
[2017-12-19 12:00] VITALS: BP 118/68
[2017-12-19 16:00] VITALS: BP 120/64
[2017-12-19 20:00] VITALS: BP 123/71
[2017-12-19] MEDS: CEFTRIAXONE 1 G PREMIX 50 ML IV SCH (23:19)
[2017-12-19] MEDS ORDERED: POTASSIUM PHOS,M-BASIC-D-BASIC 20 MMOL in DEXT 5% WATER 243.3333 ML IV NR (23:30)
[2017-12-19 23:38] LABS: PLATELET ESTIMATE NORMAL
[2017-12-20] VITALS: BP 132/80
[2017-12-20] MEDS: IPRATROPIUM/ALBUTEROL 0.5-3(2.5)MG/3ML NEB HHN SCH ×6 (00:12→20:48)
[2017-12-20 04:00] VITALS: BP 124/74
[2017-12-20] MEDS: PANTOPRAZOLE 40MG DR TABLET PO SCH (05:45)
[2017-12-20] MEDS: METHYLPREDNISOLONE SOD SUCC 40 MG/ML VIAL IV SCH ×2 (05:45→12:16)
[2017-12-20 05:54] LABS: HEMATOCRIT. 39.4 % (42.0-52.0); HEMOGLOBIN. 12.8 g/dL (14.0-18.0); MEAN CORPUSCULAR VOLUME 83.3 fL (80.0-94.0); MEAN PLATELET VOLUME 8.8 fl (7.4-10.4); PLATELET 165 x1000/uL (130-400); RED BLOOD CELL COUNT 4.73 mill/uL (4.7-6.1); RED CELL DISTRIBUTION WIDTH 14.8 % (11.6-14.6)
[2017-12-20 06:51] LABS: CHLORIDE 102 mEq/L (98-107)
[2017-12-20 07:01] LABS: PHOSPHORUS 3.3 mg/dL (2.5-4.9)
[2017-12-20 08:00] VITALS: BP 162/96
[2017-12-20] MEDS: TAMSULOSIN HCL 0.4MG SR CAPSULE PO SCH (08:50)
[2017-12-20] MEDS: ASPIRIN 81MG EC TABLET PO SCH (08:50)
[2017-12-20] MEDS: AMLODIPINE 10MG TABLET PO SCH (08:50)
[2017-12-20] MEDS: ENOXAPARIN 40MG/0.4ML SYR SUBCUT SCH (08:51)
[2017-12-20] MEDS: DOCUSATE SODIUM 100MG CAPSULE PO PRN (08:53)
[2017-12-20] MEDS: ARFORMOTEROL TARTRATE 15MCG/2ML NEB NEB SCH ×2 (09:18→20:49)
[2017-12-20 12:00] VITALS: BP 114/62
[2017-12-20 13:45] LABS: PLATELET ESTIMATE NORMAL
[2017-12-20 20:00] VITALS: BP 126/77
[2017-12-20] MEDS ORDERED: PREDNISONE 20MG TABLET PO SCH (21:00)
== END 2017-12-20 22:30 | DRG 190 ==
LOC: ER 10:49 → 5WST 12:23 → EDBEDREQ 12:29 → SUPCPDRO 12:54 → ENRESERV 19:16
PROVIDERS: ADMIT Hospitalist; ATTEND Hospitalist
DX: J44.0 Chronic obstructive pulmonary disease with (acute) lower respiratory infection (principal); J18.9 Pneumonia, unspecified organism; E87.5 Hyperkalemia; D64.9 Anemia, unspecified; B02.29 Other postherpetic nervous system involvement; J44.1 Chronic obstructive pulmonary disease with (acute) exacerbation; N40.0 Benign prostatic hyperplasia without lower urinary tract symptoms; K21.9 Gastro-esophageal reflux disease without esophagitis; Y95 Nosocomial condition; J20.9 Acute bronchitis, unspecified; I10 Essential (primary) hypertension; Z88.8 Allergy status to other drugs, medicaments and biological substances; Z87.891 Personal history of nicotine dependence; Z82.49 Family history of ischemic heart disease and other diseases of the circulatory system; Z79.899 Other long term (current) drug therapy; Z79.52 Long term (current) use of systemic steroids
CPT/HCPCS: 36415; 36600; 71045; 80048; 80053; 80061; 82375; 82550; 82553; 82805; 83735; 83880; 84100; 84484; 85025; 85610; 85651; 93005; 93970; 94618; 94640; 96374; 97116; 97162; 97166; 99285; J0456; J0696; J1650; J2920; J2930; J3490; J7040; J7060; J7611; J7620

== ENCOUNTER 2018-08-11 21:05 | Inpatient (IN) | payer MEDICARE, MEDICAID ==
[~2018-08-11] VITALS: Ht 182.9 cm; Wt 73.0 kg
[~2018-08-11 21:05] MED LIST changes: +ALBU18HF2 IH; -ALBUTEROL; -AMLO10TA80 PO; +CYCL30DR EACHEYE; -CYCL30DR OP; +DICL2.5D8 EACHEYE; -DICLOFENAC BOTHEYE; -GABA-290 PO; -LISI-604 PO; +OMEP40CA34 PO; +PVCXPC MT; +TRAV2.5D EACHEYE
[2018-08-11 21:30] VITALS: BP 105/72
[2018-08-11] MEDS: IPRATROPIUM/ALBUTEROL 0.5-3(2.5)MG/3ML NEB HHN SCH ×2 (21:54)
[2018-08-11] MEDS ORDERED: BUDESONIDE 0.5MG/2ML NEB ONE (21:56)
[2018-08-11] MEDS ORDERED: CLONIDINE 0.1MG TABLET PO PRN (22:15)
[2018-08-11] MEDS ORDERED: ACETAMINOPHEN 325MG TABLET PO PRN (22:15)
[2018-08-11] MEDS ORDERED: GUAIFENESIN 200MG/10ML SUGAR FREE UDC PO PRN (22:15)
[2018-08-12] MEDS: METHYLPREDNISOLONE SOD SUCC 40 MG/ML VIAL IV SCH ×4 (01:03→23:46)
[2018-08-12] MEDS: THEOPHYLLINE ANHYDROUS 80 MG/15 ML 120ML PO SCH ×2 (01:04→06:44)
[2018-08-12] MEDS: IPRATROPIUM/ALBUTEROL 0.5-3(2.5)MG/3ML NEB HHN SCH ×6 (01:39→22:04)
[2018-08-12 02:45] VITALS: BP 105/72
[2018-08-12 08:00] VITALS: BP 132/78
[2018-08-12 08:18] LABS: HEMATOCRIT. 38.4 % (42.0-52.0); HEMOGLOBIN. 12.5 g/dL (14.0-18.0); MEAN CORPUSCULAR VOLUME 79.6 fL (80.0-94.0); MEAN PLATELET VOLUME 8.6 fl (7.4-10.4); PLATELET 295 x1000/uL (130-400); RED BLOOD CELL COUNT 4.82 mill/uL (4.7-6.1); RED CELL DISTRIBUTION WIDTH 14.7 % (11.6-14.6)
[2018-08-12 09:01] LABS: CHLORIDE 98 mEq/L (98-107)
[2018-08-12 09:22] LABS: THEOPHYLLINE 7.2 ug/mL (10-20)
[2018-08-12] MEDS: AMLODIPINE 2.5MG TABLET PO SCH ×2 (09:34→20:40)
[2018-08-12] MEDS: AMOXICILLIN/POTASSIUM CLAVULANATE 875/125MG TAB PO SCH ×2 (09:34→17:29)
[2018-08-12] MEDS: LOSARTAN POTASSIUM 25 MG TABLET PO SCH (09:35)
[2018-08-12] MEDS: CARVEDILOL 3.125 MG TABLET PO SCH ×2 (09:35→21:00)
[2018-08-12] MEDS: ENOXAPARIN 40MG/0.4ML SYR SUBCUT SCH (09:35)
[2018-08-12] MEDS: FAMOTIDINE 20MG TABLET PO SCH ×2 (09:35→17:29)
[2018-08-12 20:00] VITALS: BP 103/71
[2018-08-12] MEDS: LATANOPROST 0.005% OPHTH DROPS 2.5ML BOTHEYE SCH (21:03)
[2018-08-13] MEDS: IPRATROPIUM/ALBUTEROL 0.5-3(2.5)MG/3ML NEB HHN SCH ×6 (01:59→20:54)
[2018-08-13 02:31] LABS: PLATELET ESTIMATE NORMAL
[2018-08-13] MEDS: METHYLPREDNISOLONE SOD SUCC 40 MG/ML VIAL IV SCH ×3 (06:20→21:13)
[2018-08-13 08:00] VITALS: BP 95/65
[2018-08-13 08:47] LABS: BASOPHILS % 0.1 % (0.0-2.0); HEMATOCRIT. 38.9 % (42.0-52.0); HEMOGLOBIN. 12.4 g/dL (14.0-18.0); LYMPHOCYTES % 7.9 % (20.0-50.0); MEAN CORPUSCULAR HEMOGLOBIN 25.4 pg (28.0-32.0); MEAN CORPUSCULAR VOLUME 79.5 fL (80.0-94.0); MEAN PLATELET VOLUME 8.7 fl (7.4-10.4); MONOCYTES % 2.6 % (2.0-8.0); NEUTROPHILS % 89.4 % (40.0-76.0); PLATELET 329 x1000/uL (130-400); RED BLOOD CELL COUNT 4.89 mill/uL (4.7-6.1); RED CELL DISTRIBUTION WIDTH 14.4 % (11.6-14.6)
[2018-08-13] MEDS: AMLODIPINE 2.5MG TABLET PO SCH ×2 (09:00→21:13)
[2018-08-13] MEDS: LOSARTAN POTASSIUM 25 MG TABLET PO SCH (09:00)
[2018-08-13] MEDS: CARVEDILOL 3.125 MG TABLET PO SCH ×2 (09:00→21:00)
[2018-08-13] MEDS: FAMOTIDINE 20MG TABLET PO SCH ×2 (09:34→17:28)
[2018-08-13] MEDS: AMOXICILLIN/POTASSIUM CLAVULANATE 875/125MG TAB PO SCH ×2 (09:34→17:28)
[2018-08-13] MEDS: ENOXAPARIN 40MG/0.4ML SYR SUBCUT SCH (09:34)
[2018-08-13 10:09] LABS: CHLORIDE 97 mEq/L (98-107)
[2018-08-13 10:16] LABS: PHOSPHORUS 3.3 mg/dL (2.5-4.9)
[2018-08-13 10:25] LABS: TOTAL IRON BINDING CAPACITY 215 ug/dL (250-450)
[2018-08-13 11:47] LABS: FOLIC ACID (FOLATE) SERUM 10.8 ng/mL (>5.38)
[2018-08-13 12:06] LABS: PROSTRATE SPECIFIC AG TOTAL 5.33 ng/mL (0.0-4.0)
[2018-08-13] MEDS ORDERED: SODIUM POLYSTYRENE SULFONATE 15 G/60 ML BOT PO NR (13:00)
[2018-08-13 20:00] VITALS: BP 113/73
[2018-08-13] MEDS: LATANOPROST 0.005% OPHTH DROPS 2.5ML BOTHEYE SCH (21:12)
[2018-08-14] MEDS: IPRATROPIUM/ALBUTEROL 0.5-3(2.5)MG/3ML NEB HHN SCH ×6 (00:28→21:03)
[2018-08-14] MEDS: METHYLPREDNISOLONE SOD SUCC 40 MG/ML VIAL IV SCH ×3 (06:15→21:53)
[2018-08-14 06:52] LABS: HEMOGLOBIN. 11.8 g/dL (14.0-18.0); MEAN CORPUSCULAR HEMOGLOBIN 25.3 pg (28.0-32.0); MEAN PLATELET VOLUME 8.8 fl (7.4-10.4); PLATELET 320 x1000/uL (130-400); RED BLOOD CELL COUNT 4.68 mill/uL (4.7-6.1); RED CELL DISTRIBUTION WIDTH 14.9 % (11.6-14.6)
[2018-08-14 07:50] LABS: CHLORIDE 96 mEq/L (98-107)
[2018-08-14 07:58] VITALS: BP 112/77
[2018-08-14] MEDS: ENOXAPARIN 40MG/0.4ML SYR SUBCUT SCH (08:09)
[2018-08-14] MEDS: CARVEDILOL 3.125 MG TABLET PO SCH ×2 (08:09→21:00)
[2018-08-14] MEDS: AMOXICILLIN/POTASSIUM CLAVULANATE 875/125MG TAB PO SCH ×2 (08:09→17:14)
[2018-08-14] MEDS: LOSARTAN POTASSIUM 25 MG TABLET PO SCH (08:10)
[2018-08-14] MEDS: FAMOTIDINE 20MG TABLET PO SCH ×2 (08:10→17:14)
[2018-08-14] MEDS: AMLODIPINE 2.5MG TABLET PO SCH ×2 (08:12→21:00)
[2018-08-14 13:51] LABS: BG BASE EXCESS 11.9 mmol/L (-2.0-2.0); BG CARBOXYHEMOGLOBIN 0.3 % (0.5-1.5); BG DEOXYHEMOGLOBIN 5.7 % (0.0-5.0); BG FRACTION INSPIRED OXYGEN 28; BG HCO3 ACT 39.7 mmol/L (22.0-26.0); BG METHEMOGLOBIN 0.1 % (0.0-1.5); BG OXYGEN SATURATION 94.3 % (92.0-98.5); BG OXYHEMOGLOBIN 93.9 % (94.0-97.0); BG PCO2 68.4 mmHg (35.0-45.0); BG PH 7.382 (7.350-7.450); BG PO2 73.3 mmHg (75.0-100.0); BG SAMPLE SITE LEFT RADIAL; BG TOTAL HEMOGLOBIN 12.7 g/dL (12.0-18.0); BG VENT MODE NASAL CANNULA
[2018-08-14 17:22] LABS: PLATELET ESTIMATE NORMAL
[2018-08-14 20:00] VITALS: BP 102/66
[2018-08-14] MEDS: LATANOPROST 0.005% OPHTH DROPS 2.5ML BOTHEYE SCH (21:53)
[2018-08-15] MEDS: IPRATROPIUM/ALBUTEROL 0.5-3(2.5)MG/3ML NEB HHN SCH ×7 (00:35→23:53)
[2018-08-15] MEDS: METHYLPREDNISOLONE SOD SUCC 40 MG/ML VIAL IV SCH ×3 (06:06→21:55)
[2018-08-15 06:47] LABS: HEMATOCRIT. 37.2 % (42.0-52.0); HEMOGLOBIN. 11.9 g/dL (14.0-18.0); LYMPHOCYTES % 7.4 % (20.0-50.0); MEAN CORPUSCULAR HEMOGLOBIN 25.2 pg (28.0-32.0); MEAN PLATELET VOLUME 8.7 fl (7.4-10.4); MONOCYTES % 4.2 % (2.0-8.0); NEUTROPHILS % 88.4 % (40.0-76.0); PLATELET 328 x1000/uL (130-400); RED CELL DISTRIBUTION WIDTH 14.6 % (11.6-14.6)
[2018-08-15 06:48] LABS: CHLORIDE 95 mEq/L (98-107)
[2018-08-15 08:00] VITALS: BP 105/78
[2018-08-15] MEDS ORDERED: MAGNESIUM HYDROXIDE 400MG/5ML 30ML UDC PO PRN (08:30)
[2018-08-15] MEDS: AMLODIPINE 2.5MG TABLET PO SCH ×2 (09:00→21:00)
[2018-08-15] MEDS: LOSARTAN POTASSIUM 25 MG TABLET PO SCH (09:00)
[2018-08-15] MEDS: CARVEDILOL 3.125 MG TABLET PO SCH ×2 (09:00→21:00)
[2018-08-15] MEDS ORDERED: MAGNESIUM HYDROXIDE 400MG/5ML 30ML UDC PO NR (09:15)
[2018-08-15] MEDS: AMOXICILLIN/POTASSIUM CLAVULANATE 875/125MG TAB PO SCH ×2 (09:25→17:10)
[2018-08-15] MEDS: ENOXAPARIN 40MG/0.4ML SYR SUBCUT SCH (09:25)
[2018-08-15] MEDS: FAMOTIDINE 20MG TABLET PO SCH ×2 (09:26→17:10)
[2018-08-15] MEDS: ACETAZOLAMIDE 250MG TABLET PO SCH ×3 (11:00→17:10)
[2018-08-15] MEDS: BISACODYL 5MG TABLET PO SCH (16:23)
[2018-08-15 20:00] VITALS: BP 103/71
[2018-08-15] MEDS: LATANOPROST 0.005% OPHTH DROPS 2.5ML BOTHEYE SCH (21:55)
[2018-08-16] MEDS: IPRATROPIUM/ALBUTEROL 0.5-3(2.5)MG/3ML NEB HHN SCH ×5 (04:08→20:39)
[2018-08-16] MEDS: METHYLPREDNISOLONE SOD SUCC 40 MG/ML VIAL IV SCH ×3 (06:21→23:12)
[2018-08-16 08:00] VITALS: BP 99/47
[2018-08-16] MEDS: BISACODYL 5MG TABLET PO SCH (08:42)
[2018-08-16] MEDS: FAMOTIDINE 20MG TABLET PO SCH ×2 (08:42→17:36)
[2018-08-16] MEDS: LOSARTAN POTASSIUM 25 MG TABLET PO SCH (08:42)
[2018-08-16] MEDS: CARVEDILOL 3.125 MG TABLET PO SCH ×2 (08:43→21:19)
[2018-08-16] MEDS: AMLODIPINE 2.5MG TABLET PO SCH (08:43)
[2018-08-16] MEDS: ENOXAPARIN 40MG/0.4ML SYR SUBCUT SCH (08:43)
[2018-08-16] MEDS: AMOXICILLIN/POTASSIUM CLAVULANATE 875/125MG TAB PO SCH ×2 (08:46→17:35)
[2018-08-16 09:05] LABS: CHLORIDE 99 mEq/L (98-107)
[2018-08-16] MEDS: DOCUSATE SODIUM 100MG CAPSULE PO SCH (17:36)
[2018-08-16 20:00] VITALS: BP 118/67
[2018-08-16] MEDS: POLYETHYLENE GLYCOL 3350 (17GM) 1 DOSE PACK PO SCH (21:19)
[2018-08-16] MEDS: LATANOPROST 0.005% OPHTH DROPS 2.5ML BOTHEYE SCH (21:19)
[2018-08-17] MEDS: IPRATROPIUM/ALBUTEROL 0.5-3(2.5)MG/3ML NEB HHN SCH ×6 (00:28→20:54)
[2018-08-17] MEDS: METHYLPREDNISOLONE SOD SUCC 40 MG/ML VIAL IV SCH ×2 (06:15→14:59)
[2018-08-17 07:03] LABS: BASOPHILS % 0.2 % (0.0-2.0); HEMATOCRIT. 39.6 % (42.0-52.0); HEMOGLOBIN. 12.8 g/dL (14.0-18.0); LYMPHOCYTES % 8.5 % (20.0-50.0); MEAN CORPUSCULAR HEMOGLOBIN 25.7 pg (28.0-32.0); MEAN CORPUSCULAR VOLUME 79.8 fL (80.0-94.0); MEAN PLATELET VOLUME 9.3 fl (7.4-10.4); MONOCYTES % 4.4 % (2.0-8.0); NEUTROPHILS % 86.9 % (40.0-76.0); PLATELET 323 x1000/uL (130-400); RED BLOOD CELL COUNT 4.97 mill/uL (4.7-6.1)
[2018-08-17 07:18] LABS: CHLORIDE 101 mEq/L (98-107)
[2018-08-17 08:00] VITALS: BP 123/74
[2018-08-17] MEDS ORDERED: NON FORMULARY PATIENT HOME MED XX SCH (09:00)
[2018-08-17] MEDS: FAMOTIDINE 20MG TABLET PO SCH ×2 (09:18→16:31)
[2018-08-17] MEDS: BISACODYL 5MG TABLET PO SCH (09:18)
[2018-08-17] MEDS: CARVEDILOL 3.125 MG TABLET PO SCH ×2 (09:18→21:00)
[2018-08-17] MEDS: ENOXAPARIN 40MG/0.4ML SYR SUBCUT SCH (09:18)
[2018-08-17] MEDS: AMOXICILLIN/POTASSIUM CLAVULANATE 875/125MG TAB PO SCH ×2 (09:18→16:31)
[2018-08-17] MEDS: LOSARTAN POTASSIUM 25 MG TABLET PO SCH (09:18)
[2018-08-17] MEDS: DOCUSATE SODIUM 100MG CAPSULE PO SCH ×2 (09:18→16:31)
[2018-08-17] MEDS: PREDNISONE 20MG TABLET PO SCH (10:23)
[2018-08-17] MEDS: RESTASIS 0.05% OP SCH ×2 (10:36→16:32)
[2018-08-17] MEDS: DICLOFENAC SODIUM 0.1% OPHTH 2.5 ML BOTTLE BOTHEYE SCH ×2 (10:37→21:19)
[2018-08-17] MEDS ORDERED: SODIUM POLYSTYRENE SULFONATE 15 G/60 ML BOT PO SCH (16:00)
[2018-08-17] MEDS: GUAIFENESIN 600MG ER TABLET PO SCH (16:31)
[2018-08-17 20:09] VITALS: BP 93/54
[2018-08-17] MEDS: POLYETHYLENE GLYCOL 3350 (17GM) 1 DOSE PACK PO SCH (21:00)
[2018-08-17] MEDS: LATANOPROST 0.005% OPHTH DROPS 2.5ML BOTHEYE SCH (21:20)
[2018-08-18] MEDS: IPRATROPIUM/ALBUTEROL 0.5-3(2.5)MG/3ML NEB HHN SCH ×5 (01:35→20:38)
[2018-08-18 07:28] LABS: BASOPHILS % 0.3 % (0.0-2.0); HEMATOCRIT. 38.6 % (42.0-52.0); HEMOGLOBIN. 12.5 g/dL (14.0-18.0); MEAN CORPUSCULAR HEMOGLOBIN 25.4 pg (28.0-32.0); MEAN CORPUSCULAR VOLUME 78.4 fL (80.0-94.0); MEAN PLATELET VOLUME 9.3 fl (7.4-10.4); MONOCYTES % 11.2 % (2.0-8.0); NEUTROPHILS % 72.5 % (40.0-76.0); PLATELET 314 x1000/uL (130-400); RED BLOOD CELL COUNT 4.92 mill/uL (4.7-6.1)
[2018-08-18 07:34] LABS: CHLORIDE 100 mEq/L (98-107)
[2018-08-18 08:00] VITALS: BP 95/54
[2018-08-18] MEDS: BISACODYL 5MG TABLET PO SCH (08:46)
[2018-08-18] MEDS: PREDNISONE 20MG TABLET PO SCH (08:46)
[2018-08-18] MEDS: FAMOTIDINE 20MG TABLET PO SCH ×2 (08:46→17:09)
[2018-08-18] MEDS: GUAIFENESIN 600MG ER TABLET PO SCH ×2 (08:46→20:56)
[2018-08-18] MEDS: AMOXICILLIN/POTASSIUM CLAVULANATE 875/125MG TAB PO SCH ×2 (08:46→17:09)
[2018-08-18] MEDS: DOCUSATE SODIUM 100MG CAPSULE PO SCH ×2 (08:46→17:09)
[2018-08-18] MEDS: ENOXAPARIN 40MG/0.4ML SYR SUBCUT SCH (08:47)
[2018-08-18] MEDS: RESTASIS 0.05% OP SCH ×2 (08:47→17:13)
[2018-08-18] MEDS: DICLOFENAC SODIUM 0.1% OPHTH 2.5 ML BOTTLE BOTHEYE SCH ×2 (08:47→20:54)
[2018-08-18] MEDS: CARVEDILOL 3.125 MG TABLET PO SCH ×2 (08:48→20:56)
[2018-08-18 14:22] LABS: 25-HYDROXY VITAMIN D3 24 ng/mL (.)
[2018-08-18 20:00] VITALS: BP 102/62
[2018-08-18] MEDS: POLYETHYLENE GLYCOL 3350 (17GM) 1 DOSE PACK PO SCH ×2 (20:56→21:00)
[2018-08-18] MEDS: LATANOPROST 0.005% OPHTH DROPS 2.5ML BOTHEYE SCH (20:56)
[2018-08-19] MEDS: IPRATROPIUM/ALBUTEROL 0.5-3(2.5)MG/3ML NEB HHN SCH ×5 (00:34→16:17)
[2018-08-19 07:05] LABS: BASOPHILS % 0.1 % (0.0-2.0); EOSINOPHILS % 0.5 % (0.0-5.0); HEMATOCRIT. 37.7 % (42.0-52.0); HEMOGLOBIN. 11.9 g/dL (14.0-18.0); LYMPHOCYTES % 23.6 % (20.0-50.0); MEAN CORPUSCULAR HEMOGLOBIN 25.2 pg (28.0-32.0); MEAN CORPUSCULAR VOLUME 79.8 fL (80.0-94.0); MEAN PLATELET VOLUME 8.9 fl (7.4-10.4); MONOCYTES % 9.8 % (2.0-8.0); PLATELET 298 x1000/uL (130-400); RED BLOOD CELL COUNT 4.72 mill/uL (4.7-6.1); RED CELL DISTRIBUTION WIDTH 15.1 % (11.6-14.6)
[2018-08-19 07:46] LABS: CHLORIDE 103 mEq/L (98-107)
[2018-08-19 07:56] LABS: PHOSPHORUS 2.6 mg/dL (2.5-4.9)
[2018-08-19 08:03] VITALS: BP 100/65
[2018-08-19] MEDS: BISACODYL 5MG TABLET PO SCH (08:28)
[2018-08-19] MEDS: PREDNISONE 20MG TABLET PO SCH (08:29)
[2018-08-19] MEDS: CARVEDILOL 3.125 MG TABLET PO SCH ×2 (08:29→20:50)
[2018-08-19] MEDS: FAMOTIDINE 20MG TABLET PO SCH ×2 (08:29→16:25)
[2018-08-19] MEDS: DOCUSATE SODIUM 100MG CAPSULE PO SCH ×2 (08:29→16:25)
[2018-08-19] MEDS: GUAIFENESIN 600MG ER TABLET PO SCH ×2 (08:29→20:49)
[2018-08-19] MEDS: ENOXAPARIN 40MG/0.4ML SYR SUBCUT SCH (08:45)
[2018-08-19] MEDS: DICLOFENAC SODIUM 0.1% OPHTH 2.5 ML BOTTLE BOTHEYE SCH ×2 (08:46→20:51)
[2018-08-19] MEDS: RESTASIS 0.05% OP SCH ×2 (08:47→16:31)
[2018-08-19] MEDS ORDERED: AMOXICILLIN/POTASSIUM CLAVULANATE 875/125MG TAB PO SCH (09:00)
[2018-08-19 20:00] VITALS: BP 114/63
[2018-08-19] MEDS: POLYETHYLENE GLYCOL 3350 (17GM) 1 DOSE PACK PO SCH ×2 (20:49→20:54)
[2018-08-19] MEDS: LATANOPROST 0.005% OPHTH DROPS 2.5ML BOTHEYE SCH (21:22)
[2018-08-20] MEDS: IPRATROPIUM/ALBUTEROL 0.5-3(2.5)MG/3ML NEB HHN SCH ×5 (07:47→23:53)
[2018-08-20 08:07] VITALS: BP 122/59
[2018-08-20] MEDS: CARVEDILOL 3.125 MG TABLET PO SCH ×2 (09:00→20:32)
[2018-08-20] MEDS: BISACODYL 5MG TABLET PO SCH (09:00)
[2018-08-20] MEDS: DICLOFENAC SODIUM 0.1% OPHTH 2.5 ML BOTTLE BOTHEYE SCH ×2 (09:00→20:32)
[2018-08-20] MEDS: ENOXAPARIN 40MG/0.4ML SYR SUBCUT SCH (09:26)
[2018-08-20] MEDS: PREDNISONE 20MG TABLET PO SCH (09:26)
[2018-08-20] MEDS: DOCUSATE SODIUM 100MG CAPSULE PO SCH ×2 (09:26→16:52)
[2018-08-20] MEDS: GUAIFENESIN 600MG ER TABLET PO SCH ×2 (09:26→20:31)
[2018-08-20] MEDS: FAMOTIDINE 20MG TABLET PO SCH ×2 (09:26→16:52)
[2018-08-20] MEDS: RESTASIS 0.05% OP SCH ×2 (09:37→16:53)
[2018-08-20] MEDS ORDERED: ERGOCALCIFEROL 50000UNITS CAPSULE PO SCH (10:00)
[2018-08-20 20:00] VITALS: BP 98/61
[2018-08-20] MEDS: LATANOPROST 0.005% OPHTH DROPS 2.5ML BOTHEYE SCH (20:31)
[2018-08-20] MEDS: POLYETHYLENE GLYCOL 3350 (17GM) 1 DOSE PACK PO SCH (20:32)
[2018-08-21] MEDS: IPRATROPIUM/ALBUTEROL 0.5-3(2.5)MG/3ML NEB HHN SCH ×5 (03:49→21:22)
[2018-08-21 08:00] VITALS: BP 100/50
[2018-08-21] MEDS: DICLOFENAC SODIUM 0.1% OPHTH 2.5 ML BOTTLE BOTHEYE SCH ×2 (09:00→21:00)
[2018-08-21] MEDS: BISACODYL 5MG TABLET PO SCH (09:00)
[2018-08-21] MEDS: CARVEDILOL 3.125 MG TABLET PO SCH ×2 (09:00→21:51)
[2018-08-21] MEDS: GUAIFENESIN 600MG ER TABLET PO SCH ×2 (09:57→21:51)
[2018-08-21] MEDS: FAMOTIDINE 20MG TABLET PO SCH ×2 (09:57→17:51)
[2018-08-21] MEDS: DOCUSATE SODIUM 100MG CAPSULE PO SCH ×2 (09:57→17:51)
[2018-08-21] MEDS: ENOXAPARIN 40MG/0.4ML SYR SUBCUT SCH (09:58)
[2018-08-21] MEDS: PREDNISONE 20MG TABLET PO SCH (09:58)
[2018-08-21] MEDS: RESTASIS 0.05% OP SCH ×2 (10:50→17:51)
[2018-08-21 20:00] VITALS: BP 135/64
[2018-08-21] MEDS: POLYETHYLENE GLYCOL 3350 (17GM) 1 DOSE PACK PO SCH (21:00)
[2018-08-21] MEDS: LATANOPROST 0.005% OPHTH DROPS 2.5ML BOTHEYE SCH (21:50)
[2018-08-22] MEDS: IPRATROPIUM/ALBUTEROL 0.5-3(2.5)MG/3ML NEB HHN SCH ×4 (00:38→12:43)
[2018-08-22 08:07] LABS: BASOPHILS % 0.1 % (0.0-2.0); EOSINOPHILS % 0.9 % (0.0-5.0); HEMATOCRIT. 36.3 % (42.0-52.0); HEMOGLOBIN. 11.7 g/dL (14.0-18.0); LYMPHOCYTES % 25.4 % (20.0-50.0); MEAN CORPUSCULAR HEMOGLOBIN 25.7 pg (28.0-32.0); MEAN CORPUSCULAR VOLUME 79.7 fL (80.0-94.0); MEAN PLATELET VOLUME 8.9 fl (7.4-10.4); MONOCYTES % 10.4 % (2.0-8.0); NEUTROPHILS % 63.2 % (40.0-76.0); PLATELET 216 x1000/uL (130-400); RED BLOOD CELL COUNT 4.56 mill/uL (4.7-6.1); RED CELL DISTRIBUTION WIDTH 15.3 % (11.6-14.6)
[2018-08-22 08:08] LABS: CHLORIDE 101 mEq/L (98-107)
[2018-08-22 08:12] VITALS: BP 122/42
[2018-08-22 08:21] LABS: PHOSPHORUS 2.4 mg/dL (2.5-4.9)
[2018-08-22] MEDS: BISACODYL 5MG TABLET PO SCH (09:00)
[2018-08-22] MEDS: DICLOFENAC SODIUM 0.1% OPHTH 2.5 ML BOTTLE BOTHEYE SCH (09:00)
[2018-08-22] MEDS: FAMOTIDINE 20MG TABLET PO SCH (09:39)
[2018-08-22] MEDS: PREDNISONE 20MG TABLET PO SCH (09:39)
[2018-08-22] MEDS: RESTASIS 0.05% OP SCH (09:40)
[2018-08-22] MEDS: CARVEDILOL 3.125 MG TABLET PO SCH (09:40)
[2018-08-22] MEDS: GUAIFENESIN 600MG ER TABLET PO SCH (09:40)
[2018-08-22] MEDS: DOCUSATE SODIUM 100MG CAPSULE PO SCH (09:40)
[2018-08-22] MEDS: ENOXAPARIN 40MG/0.4ML SYR SUBCUT SCH (09:41)
[2018-08-22 11:54] VITALS: BP 126/56
== END 2018-08-22 14:55 | disposition home health service (06) | DRG 190 ==
PROVIDERS: ADMIT Physical Medicine & Rehabilitation Spinal Cord Injury Medicine; ATTEND Internal Medicine
DX: J44.1 Chronic obstructive pulmonary disease with (acute) exacerbation (principal); I21.4 Non-ST elevation (NSTEMI) myocardial infarction; E46 Unspecified protein-calorie malnutrition; I42.0 Dilated cardiomyopathy; E87.3 Alkalosis; K57.92 Diverticulitis of intestine, part unspecified, without perforation or abscess without bleeding; I11.0 Hypertensive heart disease with heart failure; I50.9 Heart failure, unspecified; D64.9 Anemia, unspecified; E78.00 Pure hypercholesterolemia, unspecified; E87.5 Hyperkalemia; H40.9 Unspecified glaucoma; K21.9 Gastro-esophageal reflux disease without esophagitis; M75.101 Unspecified rotator cuff tear or rupture of right shoulder, not specified as traumatic; M75.01 Adhesive capsulitis of right shoulder; D72.829 Elevated white blood cell count, unspecified; E55.9 Vitamin D deficiency, unspecified; R97.20 Elevated prostate specific antigen [PSA]; R00.0 Tachycardia, unspecified; R26.9 Unspecified abnormalities of gait and mobility; R53.81 Other malaise; K42.9 Umbilical hernia without obstruction or gangrene; K44.9 Diaphragmatic hernia without obstruction or gangrene; M19.90 Unspecified osteoarthritis, unspecified site; Z99.81 Dependence on supplemental oxygen; Z82.49 Family history of ischemic heart disease and other diseases of the circulatory system; Z68.21 Body mass index [BMI] 21.0-21.9, adult
CPT/HCPCS: 36415; 36600; 80048; 80198; 82306; 82330; 82375; 82607; 82728; 82746; 82805; 83540; 83550; 83735; 84100; 84132; 84134; 84153; 84443; 93970; 94640; 94660; 97110; 97116; 97162; 97166; 97530; 97535; J1650; J2920; J7512; J7620; J7626; G0103

== ENCOUNTER 2019-05-31 13:17 | Inpatient (IN) | payer BC, MEDICAID ==
[~2019-05-31] VITALS: Ht 188 cm; Wt 75.8 kg
[~2019-05-31 13:17] MED LIST changes: -ALBU18HF2 IH; -CYCL30DR EACHEYE; -DICL2.5D8 EACHEYE; -OMEP40CA34 PO; -P20 PO; -THEO200T17 PO; -TRAV2.5D EACHEYE
[2019-05-31] MEDS ORDERED: ALBUTEROL (0.083%) 2.5MG/3ML NEB HHN STA (13:35)
[2019-05-31] MEDS ORDERED: IPRATROPIUM BROMIDE (0.02%) 0.5MG/2.5ML NEB HHN STA (13:35)
[2019-05-31] MEDS ORDERED: METHYLPREDNISOLONE SOD SUCC 125 MG/2 ML VIAL IV STA (13:35)
[2019-05-31] MEDS ORDERED: LEVOFLOXACIN 750MG PREMIX 150 ML IV ONE (13:45)
[2019-05-31] MEDS ORDERED: ASPIRIN 81MG TABLET PO ONE (13:45)
[2019-05-31] MEDS ORDERED: SODIUM CHLORIDE 0.9% 1000ML BAG (SEPSIS BOLUS) IV ONE (13:45)
[2019-05-31 14:05] LABS: HEMOGLOBIN. 14.2 g/dL (14.0-18.0); MEAN CORPUSCULAR HEMOGLOBIN 27.4 pg (28.0-32.0); MEAN CORPUSCULAR VOLUME 82.8 fL (80.0-94.0); MEAN PLATELET VOLUME 8.2 fl (7.4-10.4); PLATELET 144 x1000/uL (130-400); RED BLOOD CELL COUNT 5.19 mill/uL (4.7-6.1)
[2019-05-31 14:22] LABS: PLATELET ESTIMATE NORMAL
[2019-05-31 14:32] LABS: CHLORIDE 104 mEq/L (98-107)
[2019-05-31 14:34] LABS: INR 1.1; PARTIAL THROMBOPLASTIN TIME 32.2 sec (23.4-31.0)
[2019-05-31 15:47] LABS: CLARITY URINE CLEAR (CLEAR); COLOR URINE YELLOW (YELLOW); KETONES URINE NEGATIVE (NEGATIVE); LEUKOCYTE ESTERASE URINE NEGATIVE (NEGATIVE); NITRITE URINE NEGATIVE (NEGATIVE); OCCULT BLOOD URINE NEGATIVE (NEGATIVE); PH URINE 5.5 (4.5-8.0); PROTEIN URINE NEGATIVE (NEGATIVE); SPECIFIC GRAVITY URINE 1.016 (1.005-1.030); UROBILINOGEN URINE 0.2 E.U./dL (0.2-1.0)
[2019-05-31 21:45] VITALS: BP 122/62
[2019-05-31 21:50] VITALS: BP 122/62
[2019-05-31 22:13] VITALS: BP 122/62
[2019-05-31] MEDS ORDERED: ACETAMINOPHEN 650MG/20.3ML UDC PO PRN (23:45)
[2019-05-31] MEDS ORDERED: IPRATROPIUM/ALBUTEROL 0.5-3(2.5)MG/3ML NEB HHN PRN (23:45)
[2019-05-31] MEDS ORDERED: NON FORMULARY PATIENT HOME MED XX SCH (23:45)
[2019-06-01] VITALS: BP 109/68
[2019-06-01] MEDS ORDERED: [UNRECOGNIZED DRUG - CODE] PO (01:09)
[2019-06-01] MEDS ORDERED: LEVO500T89 PO (01:09)
[2019-06-01] MEDS ORDERED: FURO40TA5 PO (01:09)
[2019-06-01] MEDS ORDERED: THEO80SO7 PO (01:09)
[2019-06-01] MEDS ORDERED: CARV3.1242 PO (01:09)
[2019-06-01] MEDS ORDERED: PRED10TA MT (01:09)
[2019-06-01] MEDS ORDERED: LORA10TA7 PO (01:09)
[2019-06-01] MEDS ORDERED: SPIR25TA6 PO (01:09)
[2019-06-01] MEDS ORDERED: ALBU4TAB6 PO (01:09)
[2019-06-01] MEDS ORDERED: SACU1TAB MT (01:09)
[2019-06-01] MEDS: METHYLPREDNISOLONE SOD SUCC 40 MG/ML VIAL IV SCH ×4 (01:26→21:13)
[2019-06-01] MEDS: IPRATROPIUM/ALBUTEROL 0.5-3(2.5)MG/3ML NEB HHN SCH ×8 (02:05→23:05)
[2019-06-01 04:00] VITALS: BP 108/63
[2019-06-01 08:00] VITALS: BP 116/70
[2019-06-01] MEDS ORDERED: ENTRESTO PO SCH (09:00)
[2019-06-01] MEDS: LORATADINE 10MG TABLET PO SCH (09:47)
[2019-06-01] MEDS: SPIRONOLACTONE 25MG TABLET PO SCH (09:47)
[2019-06-01] MEDS: MULTIVITAMINS,THER W-MINERALS TABLET PO SCH (09:47)
[2019-06-01] MEDS: CARVEDILOL 3.125 MG TABLET PO SCH ×2 (09:49→20:50)
[2019-06-01] MEDS: FUROSEMIDE 20MG TABLET PO SCH (09:50)
[2019-06-01] MEDS: ENTRESTO PO SCH ×2 (09:51→17:59)
[2019-06-01] MEDS: LEVOFLOXACIN 500MG TABLET PO SCH (11:00)
[2019-06-01 12:00] VITALS: BP 111/68
[2019-06-01] MEDS ORDERED: VANCOMYCIN 1500MG in DEXTROSE 5% WATER 250ML IV SCH (13:00)
[2019-06-01 16:00] VITALS: BP 103/62
[2019-06-01] MEDS: PIPERACILLIN/TAZOBACTAM 3.375 G in DEXT 5% WATER 100 ML IV SCH ×2 (16:28→23:47)
[2019-06-01 20:00] VITALS: BP 108/68
[2019-06-01] MEDS: VANCOMYCIN 1 G PREMIX 200 ML IV SCH (22:35)
[2019-06-02] VITALS: BP 116/65
[2019-06-02] MEDS: IPRATROPIUM/ALBUTEROL 0.5-3(2.5)MG/3ML NEB HHN SCH ×6 (01:47→21:18)
[2019-06-02 04:00] VITALS: BP 118/67
[2019-06-02] MEDS: METHYLPREDNISOLONE SOD SUCC 40 MG/ML VIAL IV SCH ×3 (05:34→21:23)
[2019-06-02] MEDS: PIPERACILLIN/TAZOBACTAM 3.375 G in DEXT 5% WATER 100 ML IV SCH ×4 (05:35→23:04)
[2019-06-02 08:00] VITALS: BP 119/70
[2019-06-02] MEDS: VANCOMYCIN 1 G PREMIX 200 ML IV SCH ×2 (09:06→21:23)
[2019-06-02] MEDS: SPIRONOLACTONE 25MG TABLET PO SCH (09:07)
[2019-06-02] MEDS: ENTRESTO PO SCH ×2 (09:07→17:34)
[2019-06-02] MEDS: CARVEDILOL 3.125 MG TABLET PO SCH ×2 (09:07→21:00)
[2019-06-02] MEDS: FUROSEMIDE 20MG TABLET PO SCH (09:07)
[2019-06-02] MEDS: LORATADINE 10MG TABLET PO SCH (09:07)
[2019-06-02] MEDS: MULTIVITAMINS,THER W-MINERALS TABLET PO SCH (09:09)
[2019-06-02] MEDS: DOCUSATE SODIUM 250MG CAPSULE PO SCH (11:56)
[2019-06-02] MEDS: LEVOFLOXACIN 500MG TABLET PO SCH (11:56)
[2019-06-02 12:00] VITALS: BP 110/65
[2019-06-02 12:25] VITALS: BP 110/65
[2019-06-02 20:00] VITALS: BP 105/61
[2019-06-02] MEDS: MAGNESIUM/ALUMINUM HYDROXIDE/SIMETHICONE 30ML UDC PO SCH (23:04)
[2019-06-03] VITALS: BP 104/68
[2019-06-03] MEDS: IPRATROPIUM/ALBUTEROL 0.5-3(2.5)MG/3ML NEB HHN SCH ×6 (00:50→20:14)
[2019-06-03 04:00] VITALS: BP 112/72
[2019-06-03] MEDS: METHYLPREDNISOLONE SOD SUCC 40 MG/ML VIAL IV SCH ×3 (06:34→21:58)
[2019-06-03] MEDS: PIPERACILLIN/TAZOBACTAM 3.375 G in DEXT 5% WATER 100 ML IV SCH ×3 (06:35→18:24)
[2019-06-03] MEDS: PANTOPRAZOLE 40MG DR TABLET PO SCH (06:35)
[2019-06-03 06:54] LABS: CHLORIDE 100 mEq/L (98-107)
[2019-06-03 06:56] LABS: HEMATOCRIT. 41.2 % (42.0-52.0); HEMOGLOBIN. 13.4 g/dL (14.0-18.0); MEAN CORPUSCULAR HEMOGLOBIN 27.1 pg (28.0-32.0); MEAN PLATELET VOLUME 8.5 fl (7.4-10.4); PLATELET 192 x1000/uL (130-400); RED BLOOD CELL COUNT 4.97 mill/uL (4.7-6.1)
[2019-06-03 07:03] LABS: PHOSPHORUS 1.7 mg/dL (2.5-4.9)
[2019-06-03 08:00] VITALS: BP 117/71
[2019-06-03] MEDS: ENTRESTO PO SCH ×2 (09:24→18:25)
[2019-06-03] MEDS: LORATADINE 10MG TABLET PO SCH (09:25)
[2019-06-03] MEDS: FUROSEMIDE 20MG TABLET PO SCH (09:25)
[2019-06-03] MEDS: SPIRONOLACTONE 25MG TABLET PO SCH (09:25)
[2019-06-03] MEDS: DOCUSATE SODIUM 250MG CAPSULE PO SCH (09:25)
[2019-06-03] MEDS: MAGNESIUM/ALUMINUM HYDROXIDE/SIMETHICONE 30ML UDC PO SCH (09:29)
[2019-06-03] MEDS: MULTIVITAMINS,THER W-MINERALS TABLET PO SCH (09:29)
[2019-06-03] MEDS: CARVEDILOL 3.125 MG TABLET PO SCH ×2 (09:29→20:40)
[2019-06-03] MEDS: VANCOMYCIN 1 G PREMIX 200 ML IV SCH ×2 (10:34→18:25)
[2019-06-03] MEDS: LEVOFLOXACIN 500MG TABLET PO SCH (10:36)
[2019-06-03 11:58] VITALS: BP 116/73
[2019-06-03] MEDS: POTASSIUM-SODIUM PHOSPHATE POWDER PACKET PO SCH ×2 (14:43→20:41)
[2019-06-03] MEDS ORDERED: MAGNESIUM CITRATE 300ML SOLUTION PO NR (15:00)
[2019-06-03 16:00] VITALS: BP 140/77
[2019-06-03 20:00] VITALS: BP 125/69
[2019-06-04] VITALS (7 sets, daily range): BP systolic 106–146; BP diastolic 69–87
[2019-06-04] MEDS: IPRATROPIUM/ALBUTEROL 0.5-3(2.5)MG/3ML NEB HHN SCH ×9 (00:15→22:49)
[2019-06-04] MEDS: PIPERACILLIN/TAZOBACTAM 3.375 G in DEXT 5% WATER 100 ML IV SCH ×4 (00:51→19:56)
[2019-06-04] MEDS: VANCOMYCIN 1 G PREMIX 200 ML IV SCH ×3 (02:19→19:55)
[2019-06-04] MEDS: PANTOPRAZOLE 40MG DR TABLET PO SCH (05:59)
[2019-06-04] MEDS: METHYLPREDNISOLONE SOD SUCC 40 MG/ML VIAL IV SCH ×3 (05:59→21:15)
[2019-06-04] MEDS: POTASSIUM-SODIUM PHOSPHATE POWDER PACKET PO SCH ×2 (08:48→17:12)
[2019-06-04] MEDS: MAGNESIUM/ALUMINUM HYDROXIDE/SIMETHICONE 30ML UDC PO SCH (08:48)
[2019-06-04] MEDS: FUROSEMIDE 20MG TABLET PO SCH (08:49)
[2019-06-04] MEDS: DOCUSATE SODIUM 250MG CAPSULE PO SCH (08:49)
[2019-06-04] MEDS: CARVEDILOL 3.125 MG TABLET PO SCH ×2 (08:49→20:10)
[2019-06-04] MEDS: SPIRONOLACTONE 25MG TABLET PO SCH (08:49)
[2019-06-04] MEDS: LORATADINE 10MG TABLET PO SCH (08:49)
[2019-06-04] MEDS: MULTIVITAMINS,THER W-MINERALS TABLET PO SCH (08:51)
[2019-06-04] MEDS: ENTRESTO PO SCH ×2 (08:53→17:12)
[2019-06-04 09:09] LABS: BASOPHILS % 0.1 % (0.0-2.0); EOSINOPHILS % 0.2 % (0.0-5.0); HEMATOCRIT. 44.5 % (42.0-52.0); HEMOGLOBIN. 14.4 g/dL (14.0-18.0); LYMPHOCYTES % 7.8 % (20.0-50.0); MEAN CORPUSCULAR HEMOGLOBIN 26.9 pg (28.0-32.0); MEAN CORPUSCULAR VOLUME 82.8 fL (80.0-94.0); MEAN PLATELET VOLUME 7.8 fl (7.4-10.4); MONOCYTES % 4.6 % (2.0-8.0); NEUTROPHILS % 87.3 % (40.0-76.0); PLATELET 223 x1000/uL (130-400); RED BLOOD CELL COUNT 5.38 mill/uL (4.7-6.1); RED CELL DISTRIBUTION WIDTH 14.6 % (11.6-14.6)
[2019-06-04 09:43] LABS: CHLORIDE 98 mEq/L (98-107)
[2019-06-04 09:49] LABS: PHOSPHORUS 1.8 mg/dL (2.5-4.9)
[2019-06-04 10:35] LABS: PLATELET ESTIMATE NORMAL
[2019-06-04] MEDS: LEVOFLOXACIN 500MG TABLET PO SCH (10:54)
[2019-06-04] MEDS ORDERED: MORPHINE SULFATE 2 MG/ML CPJ (NOT FOR IM USE) IV NR (20:45)
[2019-06-05] VITALS: BP 113/70
[2019-06-05] MEDS: PIPERACILLIN/TAZOBACTAM 3.375 G in DEXT 5% WATER 100 ML IV SCH ×4 (01:00→18:48)
[2019-06-05] MEDS: IPRATROPIUM/ALBUTEROL 0.5-3(2.5)MG/3ML NEB HHN SCH ×6 (01:56→16:20)
[2019-06-05] MEDS: VANCOMYCIN 1 G PREMIX 200 ML IV SCH ×3 (02:00→18:47)
[2019-06-05 04:00] VITALS: BP 103/64
[2019-06-05] MEDS: PANTOPRAZOLE 40MG DR TABLET PO SCH (06:16)
[2019-06-05] MEDS: METHYLPREDNISOLONE SOD SUCC 40 MG/ML VIAL IV SCH ×2 (06:16→14:17)
[2019-06-05 06:57] LABS: BASOPHILS % 0.1 % (0.0-2.0); EOSINOPHILS % 0.6 % (0.0-5.0); HEMATOCRIT. 44.4 % (42.0-52.0); HEMOGLOBIN. 14.6 g/dL (14.0-18.0); MEAN CORPUSCULAR HEMOGLOBIN 27.4 pg (28.0-32.0); MEAN CORPUSCULAR VOLUME 83.3 fL (80.0-94.0); MEAN PLATELET VOLUME 8.2 fl (7.4-10.4); MONOCYTES % 7.5 % (2.0-8.0); NEUTROPHILS % 76.8 % (40.0-76.0); PLATELET 260 x1000/uL (130-400); RED BLOOD CELL COUNT 5.32 mill/uL (4.7-6.1); RED CELL DISTRIBUTION WIDTH 14.4 % (11.6-14.6)
[2019-06-05 07:44] LABS: CHLORIDE 96 mEq/L (98-107)
[2019-06-05] MEDS ORDERED: SORBITOL 70% SOLN 30ML PO NR (08:45)
[2019-06-05 09:25] LABS: BG BASE EXCESS 11.9 mmol/L (-2.0-2.0); BG DEOXYHEMOGLOBIN 3.1 % (0.0-5.0); BG FRACTION INSPIRED OXYGEN 28; BG HCO3 ACT 41.3 mmol/L (22.0-26.0); BG METHEMOGLOBIN 0.3 % (0.0-1.5); BG OXYGEN SATURATION 96.9 % (92.0-98.5); BG OXYHEMOGLOBIN 95.6 % (94.0-97.0); BG PCO2 74.5 mmHg (35.0-45.0); BG PH 7.362 (7.350-7.450); BG SAMPLE SITE LEFT BRACHIAL; BG VENT MODE NASAL CANNULA
[2019-06-05] MEDS ORDERED: SODIUM POLYSTYRENE SULFONATE 15 G/60 ML BOT PO NR (10:30)
[2019-06-05] MEDS: DOCUSATE SODIUM 250MG CAPSULE PO SCH (11:02)
[2019-06-05] MEDS: LORATADINE 10MG TABLET PO SCH (11:02)
[2019-06-05] MEDS: MULTIVITAMINS,THER W-MINERALS TABLET PO SCH (11:02)
[2019-06-05] MEDS: CARVEDILOL 3.125 MG TABLET PO SCH (11:03)
[2019-06-05] MEDS: FUROSEMIDE 20MG TABLET PO SCH (11:03)
[2019-06-05] MEDS: MAGNESIUM/ALUMINUM HYDROXIDE/SIMETHICONE 30ML UDC PO SCH (11:03)
[2019-06-05] MEDS: ENTRESTO PO SCH ×2 (11:04→18:46)
[2019-06-05 11:35] LABS: CHLORIDE 94 mEq/L (98-107)
[2019-06-05 11:45] LABS: PHOSPHORUS 2.4 mg/dL (2.5-4.9)
[2019-06-05] MEDS: LEVOFLOXACIN 500MG TABLET PO SCH (12:53)
[2019-06-05] MEDS ORDERED: SODIUM PHOS,M-BASIC-D-BASIC 20 MM in DEXT 5% WATER 243.3333 ML IV NR (13:30)
[2019-06-05 16:00] VITALS: BP 109/69
== END 2019-06-05 20:40 | disposition short-term general hospital (02) | DRG 871 ==
LOC: ER 13:17 → 8WST 14:59 → ENRESERV 20:46
PROVIDERS: ADMIT Internal Medicine; ATTEND Internal Medicine
DX: A41.9 Sepsis, unspecified organism (principal); J18.1 Lobar pneumonia, unspecified organism; J96.91 Respiratory failure, unspecified with hypoxia; I42.0 Dilated cardiomyopathy; F17.210 Nicotine dependence, cigarettes, uncomplicated; H40.9 Unspecified glaucoma; I11.0 Hypertensive heart disease with heart failure; I27.20 Pulmonary hypertension, unspecified; E87.5 Hyperkalemia; J43.9 Emphysema, unspecified; I50.9 Heart failure, unspecified; K21.9 Gastro-esophageal reflux disease without esophagitis; N40.0 Benign prostatic hyperplasia without lower urinary tract symptoms; Z95.810 Presence of automatic (implantable) cardiac defibrillator; Z99.81 Dependence on supplemental oxygen
CPT/HCPCS: 36415; 36600; 71045; 80048; 80202; 81003; 82375; 82805; 83605; 83735; 83880; 84100; 84132; 84145; 84484; 93005; 94640; 94644; 99285; J1956; J2270; J2543; J2920; J2930; J3370; J3490; J7030; J7040; J7060; J7611; J7620

== ENCOUNTER 2022-01-02 15:47 | Inpatient (IN) | payer OTHER, MEDICAID ==
[~2022-01-02] VITALS: Ht 185.4 cm; Wt 75.7 kg
[~2022-01-02 15:47] MED LIST changes: +ALBU4TAB6 PO; +CARV3.1242 PO; +FURO40TA5 PO; +LEVO500T89 PO; +LORA10TA7 PO; +PRED10TA MT; +SACU1TAB MT; +SPIR25TA6 PO; +THE3 MT; +THEO80SO PO; +[UNRECOGNIZED DRUG - CODE] PO
[2022-01-02] MEDS ORDERED: IPRATROPIUM BROMIDE (0.02%) 0.5MG/2.5ML NEB HHN STA ×2 (16:00→20:02)
[2022-01-02] MEDS ORDERED: METHYLPREDNISOLONE SOD SUCC 125 MG/2 ML VIAL IV STA (16:00)
[2022-01-02] MEDS: ALBUTEROL (0.083%) 2.5MG/3ML NEB HHN SCH ×2 (16:15→16:36)
[2022-01-02] MEDS ORDERED: CEFTRIAXONE 1 G PREMIX 50 ML IV ONE (16:30)
[2022-01-02] MEDS ORDERED: AZITHROMYCIN 500MG/250ML 250 ML IV ONE (16:30)
[2022-01-02] MEDS ORDERED: MAGNESIUM 2 G PREMIX 50 ML IV ONE (16:30)
[2022-01-02 16:42] LABS: BASOPHILS % 0.6 % (0.0-2.0); EOSINOPHILS % 0.3 % (0.0-5.0); HEMATOCRIT. 44.6 % (42.0-52.0); HEMOGLOBIN. 14.6 g/dL (14.0-18.0); LYMPHOCYTES % 11.7 % (20.0-50.0); MEAN CORPUSCULAR VOLUME 82.4 fL (80.0-94.0); MEAN PLATELET VOLUME 8.6 fl (7.4-10.4); MONOCYTES % 6.8 % (2.0-8.0); NEUTROPHILS % 80.6 % (40.0-76.0); PLATELET 160 x1000/uL (130-400); RED BLOOD CELL COUNT 5.41 mill/uL (4.7-6.1); RED CELL DISTRIBUTION WIDTH 15.4 % (11.6-14.6)
[2022-01-02 16:51] LABS: CHLORIDE 107 mEq/L (98-107)
[2022-01-02 17:33] LABS: BG BASE EXCESS 3.3 mmol/L (-2.0-2.0); BG CARBOXYHEMOGLOBIN 1.7 % (0.5-1.5); BG DEOXYHEMOGLOBIN 4.1 % (0.0-5.0); BG FRACTION INSPIRED OXYGEN 30; BG HCO3 ACT 31.8 mmol/L (22.0-26.0); BG METHEMOGLOBIN 0.3 % (0.0-1.5); BG OXYGEN SATURATION 95.8 % (92.0-98.5); BG OXYHEMOGLOBIN 93.9 % (94.0-97.0); BG PCO2 64.4 mmHg (35.0-45.0); BG PH 7.311 (7.350-7.450); BG SAMPLE SITE RIGHT RADIAL; BG TOTAL HEMOGLOBIN 15.7 g/dL (12.0-18.0); BG VENT MODE MASK - BIPAP
[2022-01-02] MEDS ORDERED: SODIUM CHLORIDE 0.9% 1,000 ML IV ONE (19:45)
[2022-01-02] MEDS ORDERED: ALBUTEROL (0.083%) 2.5MG/3ML NEB HHN STA (20:02)
[2022-01-02] MEDS ORDERED: PROMETHAZINE/DEXTROMETHORPHAN 6.25-15MG/5ML BOTTLE 120ML PO PRN (21:45)
[2022-01-02] MEDS ORDERED: GUAIFENESIN 200MG/10ML SUGAR FREE UDC PO PRN (21:45)
[2022-01-02] MEDS ORDERED: ZOLPIDEM TARTRATE 5MG TABLET PO PRN (21:45)
[2022-01-02] MEDS ORDERED: MAGNESIUM HYDROXIDE 400MG/5ML 30ML UDC PO PRN (21:45)
[2022-01-02] MEDS ORDERED: ACETAMINOPHEN 325MG TABLET PO PRN ×2 (21:45)
[2022-01-02] MEDS ORDERED: MAGNESIUM/ALUMINUM HYDROXIDE/SIMETHICONE 30ML UDC PO PRN (21:45)
[2022-01-02] MEDS ORDERED: IPRATROPIUM/ALBUTEROL 0.5-3(2.5)MG/3ML NEB NEB PRN (21:45)
[2022-01-02] MEDS ORDERED: HYDROCODONE/ACETAMINOPHEN 5/325MG TABLET PO PRN (21:45)
[2022-01-02] MEDS ORDERED: ONDANSETRON HCL 4MG/2ML INJ IV PRN (21:45)
[2022-01-02] MEDS ORDERED: DIPHENHYDRAMINE 50MG/ML VIAL IV PRN (21:45)
[2022-01-02] MEDS: ENOXAPARIN 40MG/0.4ML SYR SUBCUT SCH (23:00)
[2022-01-02 23:45] VITALS: BP 126/76
[2022-01-03] VITALS (12 sets, daily range): BP systolic 96–126; BP diastolic 56–86
[2022-01-03] MEDS: IPRATROPIUM/ALBUTEROL 0.5-3(2.5)MG/3ML NEB HHN SCH ×4 (00:55→20:17)
[2022-01-03 00:57] LABS: BG BASE EXCESS 2.4 mmol/L (-2.0-2.0); BG CARBOXYHEMOGLOBIN 1.4 % (0.5-1.5); BG DEOXYHEMOGLOBIN 5.2 % (0.0-5.0); BG FRACTION INSPIRED OXYGEN 30; BG HCO3 ACT 30.7 mmol/L (22.0-26.0); BG METHEMOGLOBIN 0.3 % (0.0-1.5); BG OXYGEN SATURATION 94.7 % (92.0-98.5); BG OXYHEMOGLOBIN 93.1 % (94.0-97.0); BG PCO2 62.3 mmHg (35.0-45.0); BG PO2 76.4 mmHg (75.0-100.0); BG SAMPLE SITE RIGHT RADIAL; BG TOTAL HEMOGLOBIN 15.8 g/dL (12.0-18.0); BG VENT MODE MASK - BIPAP
[2022-01-03] MEDS: METHYLPREDNISOLONE SOD SUCC 125 MG/2 ML VIAL IV SCH ×5 (05:32→21:57)
[2022-01-03] MEDS: OMEPRAZOLE 20MG CAPSULE EXTENDED RELEASE PO SCH ×2 (08:48→21:57)
[2022-01-03] MEDS: LORATADINE 10MG TABLET PO SCH (09:21)
[2022-01-03 12:01] LABS: BG BASE EXCESS 3.7 mmol/L (-2.0-2.0); BG CARBOXYHEMOGLOBIN 0.7 % (0.5-1.5); BG DEOXYHEMOGLOBIN 5.4 % (0.0-5.0); BG HCO3 ACT 32.1 mmol/L (22.0-26.0); BG METHEMOGLOBIN 0.2 % (0.0-1.5); BG OXYGEN SATURATION 94.6 % (92.0-98.5); BG OXYHEMOGLOBIN 93.7 % (94.0-97.0); BG PCO2 65.5 mmHg (35.0-45.0); BG PH 7.308 (7.350-7.450); BG PO2 75.8 mmHg (75.0-100.0); BG SAMPLE SITE RIGHT RADIAL; BG TOTAL HEMOGLOBIN 14.9 g/dL (12.0-18.0); BG VENT MODE MASK - BIPAP
[2022-01-03] MEDS ORDERED: CEFTRIAXONE 1 G PREMIX 50 ML IV SCH (12:45)
[2022-01-03] MEDS ORDERED: ASPI-1406 PO (12:59)
[2022-01-03] MEDS ORDERED: ASPI-1406 MT (12:59)
[2022-01-03] MEDS ORDERED: CARV12.545 PO (13:02)
[2022-01-03] MEDS ORDERED: LOSA25TA26 MT (13:22)
[2022-01-03] MEDS ORDERED: EMPA10TA PO (13:22)
[2022-01-03] MEDS ORDERED: EMPA10TA MT (13:22)
[2022-01-03] MEDS ORDERED: SACU1TAB MT (13:22)
[2022-01-03] MEDS: AZITHROMYCIN 500 MG in DEXT 5% WATER 250 ML IV SCH (15:10)
[2022-01-03] MEDS: CEFTRIAXONE 1,000 MG in DEXTROSE 5% WATER 50 ML IV SCH (18:03)
[2022-01-03] MEDS: GUAIFENESIN 600MG ER TABLET PO SCH (21:58)
[2022-01-03] MEDS: SODIUM CHLORIDE 0.9% INJ 3ML FLUSH IVF SCH (22:00)
[2022-01-03] MEDS: ENOXAPARIN 40MG/0.4ML SYR SUBCUT SCH (22:59)
[2022-01-04] VITALS (12 sets, daily range): BP systolic 105–154; BP diastolic 58–76
[2022-01-04] MEDS: IPRATROPIUM/ALBUTEROL 0.5-3(2.5)MG/3ML NEB HHN SCH ×4 (00:21→21:32)
[2022-01-04] MEDS: SODIUM CHLORIDE 0.9% INJ 3ML FLUSH IVF SCH ×3 (05:12→22:03)
[2022-01-04] MEDS: METHYLPREDNISOLONE SOD SUCC 125 MG/2 ML VIAL IV SCH ×3 (05:12→21:59)
[2022-01-04] MEDS: LORATADINE 10MG TABLET PO SCH (09:26)
[2022-01-04] MEDS: GUAIFENESIN 600MG ER TABLET PO SCH ×2 (09:26→22:01)
[2022-01-04] MEDS: OMEPRAZOLE 20MG CAPSULE EXTENDED RELEASE PO SCH ×2 (09:27→22:00)
[2022-01-04] MEDS: AZITHROMYCIN 500 MG in DEXT 5% WATER 250 ML IV SCH (16:39)
[2022-01-04] MEDS: CEFTRIAXONE 1,000 MG in DEXTROSE 5% WATER 50 ML IV SCH (18:02)
[2022-01-04] MEDS: CARVEDILOL 3.125 MG TABLET PO SCH (22:00)
[2022-01-04] MEDS: ENOXAPARIN 40MG/0.4ML SYR SUBCUT SCH (22:01)
[2022-01-05] VITALS (11 sets, daily range): BP systolic 102–162; BP diastolic 59–96
[2022-01-05] MEDS: IPRATROPIUM/ALBUTEROL 0.5-3(2.5)MG/3ML NEB HHN SCH ×4 (00:58→20:02)
[2022-01-05] MEDS: METHYLPREDNISOLONE SOD SUCC 125 MG/2 ML VIAL IV SCH ×3 (05:33→22:40)
[2022-01-05] MEDS: SODIUM CHLORIDE 0.9% INJ 3ML FLUSH IVF SCH ×3 (05:33→22:41)
[2022-01-05] MEDS: OMEPRAZOLE 20MG CAPSULE EXTENDED RELEASE PO SCH ×2 (10:09→22:41)
[2022-01-05] MEDS: LORATADINE 10MG TABLET PO SCH (10:09)
[2022-01-05] MEDS: CARVEDILOL 3.125 MG TABLET PO SCH ×2 (10:10→22:41)
[2022-01-05] MEDS: GUAIFENESIN 600MG ER TABLET PO SCH ×2 (10:10→21:00)
[2022-01-05] MEDS: FUROSEMIDE 20MG TABLET PO SCH (10:10)
[2022-01-05 12:24] LABS: HDL CHOLESTEROL 87 mg/dL (40-59); LDL CHOLESTEROL 117 mg/dL (5-100); T4 FREE 0.69 ng/dL (0.76-1.46)
[2022-01-05] MEDS: AZITHROMYCIN 500 MG TABLET PO SCH (14:33)
[2022-01-05 16:32] LABS: CREATINE KINASE MB FRACTION 1.9 ng/mL (0.5-3.6)
[2022-01-05] MEDS: CEFTRIAXONE 1,000 MG in DEXTROSE 5% WATER 50 ML IV SCH (16:41)
[2022-01-05] MEDS: ENOXAPARIN 40MG/0.4ML SYR SUBCUT SCH (22:40)
[2022-01-06] VITALS (12 sets, daily range): BP systolic 103–143; BP diastolic 53–99
[2022-01-06] MEDS: IPRATROPIUM/ALBUTEROL 0.5-3(2.5)MG/3ML NEB HHN SCH ×4 (01:21→20:33)
[2022-01-06 02:06] LABS: CREATINE KINASE MB FRACTION 1.9 ng/mL (0.5-3.6)
[2022-01-06] MEDS: METHYLPREDNISOLONE SOD SUCC 125 MG/2 ML VIAL IV SCH ×2 (06:07→14:48)
[2022-01-06] MEDS: SODIUM CHLORIDE 0.9% INJ 3ML FLUSH IVF SCH ×3 (06:08→21:06)
[2022-01-06 07:16] LABS: CREATINE KINASE MB FRACTION 1.9 ng/mL (0.5-3.6)
[2022-01-06] MEDS: CARVEDILOL 3.125 MG TABLET PO SCH ×2 (08:08→21:06)
[2022-01-06] MEDS: FUROSEMIDE 20MG TABLET PO SCH (08:08)
[2022-01-06] MEDS: LORATADINE 10MG TABLET PO SCH (08:08)
[2022-01-06] MEDS: GUAIFENESIN 600MG ER TABLET PO SCH ×2 (08:08→21:06)
[2022-01-06] MEDS: OMEPRAZOLE 20MG CAPSULE EXTENDED RELEASE PO SCH ×2 (08:08→21:05)
[2022-01-06] MEDS: AZITHROMYCIN 500 MG TABLET PO SCH (14:50)
[2022-01-06] MEDS: LOSARTAN POTASSIUM 25 MG TABLET PO SCH (15:00)
[2022-01-06] MEDS ORDERED: NALOXONE HCL 0.4MG/ML VIAL IV PRN (15:15)
[2022-01-06] MEDS: CEFTRIAXONE 1,000 MG in DEXTROSE 5% WATER 50 ML IV SCH (16:17)
[2022-01-06] MEDS: METHYLPREDNISOLONE SOD SUCC 40 MG/ML VIAL IV SCH (21:06)
[2022-01-06 21:08] LABS: HEMATOCRIT. 42.2 % (42.0-52.0); HEMOGLOBIN. 13.8 g/dL (14.0-18.0); MEAN CORPUSCULAR VOLUME 82.9 fL (80.0-94.0); MEAN PLATELET VOLUME 8.4 fl (7.4-10.4); PLATELET 156 x1000/uL (130-400); RED BLOOD CELL COUNT 5.09 mill/uL (4.7-6.1)
[2022-01-06 21:34] LABS: CHLORIDE 99 mEq/L (98-107)
[2022-01-06 22:19] LABS: PLATELET ESTIMATE NORMAL
[2022-01-06] MEDS: ENOXAPARIN 40MG/0.4ML SYR SUBCUT SCH (22:29)
[2022-01-07] VITALS (9 sets, daily range): BP systolic 105–123; BP diastolic 50–70
[2022-01-07] MEDS: IPRATROPIUM/ALBUTEROL 0.5-3(2.5)MG/3ML NEB HHN SCH ×3 (00:57→13:52)
[2022-01-07] MEDS: SODIUM CHLORIDE 0.9% INJ 3ML FLUSH IVF SCH (05:16)
[2022-01-07] MEDS: METHYLPREDNISOLONE SOD SUCC 40 MG/ML VIAL IV SCH (05:16)
[2022-01-07] MEDS: FUROSEMIDE 20MG TABLET PO SCH (08:18)
[2022-01-07] MEDS: OMEPRAZOLE 20MG CAPSULE EXTENDED RELEASE PO SCH (08:18)
[2022-01-07] MEDS: LORATADINE 10MG TABLET PO SCH (08:18)
[2022-01-07] MEDS: GUAIFENESIN 600MG ER TABLET PO SCH (08:18)
[2022-01-07] MEDS: CARVEDILOL 3.125 MG TABLET PO SCH (08:19)
[2022-01-07] MEDS: LOSARTAN POTASSIUM 25 MG TABLET PO SCH (09:00)
[2022-01-07] MEDS ORDERED: COR3 PO (10:07)
[2022-01-07] MEDS ORDERED: OMEP20CA14 PO (10:07)
[2022-01-07] MEDS ORDERED: LOSA25TA3 PO (10:07)
[2022-01-07] MEDS ORDERED: IPRA3AMP9 NEB (10:07)
[2022-01-07] MEDS ORDERED: FURO20TA4 PO (10:07)
[2022-01-07] MEDS ORDERED: CLAR10 PO (10:07)
[2022-01-07] MEDS ORDERED: P20 MT (10:08)
== END 2022-01-07 17:28 | disposition home or self-care (01) | DRG 193 ==
LOC: ER 15:47 → MICUSO 19:43 → 5EST 23:35
PROVIDERS: ADMIT Internal Medicine; ATTEND Internal Medicine
PROC: 5A09357 Assistance with Respiratory Ventilation, Less than 24 Consecutive Hours, Continuous Positive Airway Pressure (ICD-10-PCS; principal; 2022-01-02)
PROC: 5A09357 Assistance with Respiratory Ventilation, Less than 24 Consecutive Hours, Continuous Positive Airway Pressure (ICD-10-PCS; 2022-01-04)
PROC: 5A09357 Assistance with Respiratory Ventilation, Less than 24 Consecutive Hours, Continuous Positive Airway Pressure (ICD-10-PCS; 2022-01-07)
DX: J18.9 Pneumonia, unspecified organism (principal); J96.21 Acute and chronic respiratory failure with hypoxia; J96.22 Acute and chronic respiratory failure with hypercapnia; J44.0 Chronic obstructive pulmonary disease with (acute) lower respiratory infection; E44.1 Mild protein-calorie malnutrition; I50.22 Chronic systolic (congestive) heart failure; I42.0 Dilated cardiomyopathy; J44.1 Chronic obstructive pulmonary disease with (acute) exacerbation; J20.9 Acute bronchitis, unspecified; C61 Malignant neoplasm of prostate; E78.00 Pure hypercholesterolemia, unspecified; I11.0 Hypertensive heart disease with heart failure; I27.20 Pulmonary hypertension, unspecified; I49.5 Sick sinus syndrome; Z95.810 Presence of automatic (implantable) cardiac defibrillator; Z87.891 Personal history of nicotine dependence; Z99.81 Dependence on supplemental oxygen; Z68.22 Body mass index [BMI] 22.0-22.9, adult; Z88.1 Allergy status to other antibiotic agents; Z79.899 Other long term (current) drug therapy
CPT/HCPCS: 36415; 36600; 71045; 71250; 80053; 80061; 82375; 82550; 82553; 82805; 83036; 83880; 84439; 84443; 84484; 85025; 85379; 87070; 93005; 93306; 94640; 94660; 99291; J0456; J0696; J1650; J2920; J2930; J3475; J7030; J7060